=== PATIENT | female | born 1950 | race Caucasian/White ===

== ENCOUNTER 2019-05-16 13:41 | Outpatient (CLI) | payer MEDICARE, SELFPAY ==
--- NOTE | ~2019-05-16 | XR_ITS ---
EXAMINATION: XR chest 2V EXAM DATE: 05/16/2019 14:05 INDICATION: Right thoracic pain, right scapular pain. Cough. TECHNIQUE: Frontal and lateral projections of the chest obtained and reviewed. Comparison is made to prior examination from 09/24/2016. FINDINGS: Moderate chronic hyperinflation. The lungs are clear. There are no pleural effusions. Th e cardiomediastinal silhouette is within normal limits. There is no pneumothorax suspected. The bon es and soft tissues are unremarkable. IMPRESSION: 1. No acute cardiopulmonary findings. 2. Hyperinflation. Reviewed, dictated and finalized at location A. 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
--- NOTE | ~2019-05-16 | XR_ITS ---
EXAMINATION: XR scapula RT EXAM DATE: 05/16/2019 14:05 INDICATION: Right scapular pain. TECHNIQUE: Frontal and lateral projections of the right scapula. There is no prior study for compar dulce. FINDINGS: There is mild right acromioclavicular joint primary osteoarthritis. There are no acute scap jacquelyn fractures or dislocations identified. There is no subcutaneous gas. The soft tissue is unremark able. There are no radiopaque foreign bodies. Imaged portions of the right ribs are unremarkable. There are no osteoblastic or osteolytic lesions identified. IMPRESSION: Mild right acromioclavicular osteoarthritis. Reviewed, dictated and finalized at location A. 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
== END 2019-05-16 13:42 | disposition home or self-care (01) ==
LOC: CHSIMG 13:47
PROVIDERS: PCP Internal Medicine; Visit Provider Internal Medicine
DX: M54.6 Pain in thoracic spine (principal); M25.511 Pain in right shoulder
CPT/HCPCS: 71046; 73010

== ENCOUNTER 2020-01-19 10:27 | Outpatient (CLI) | payer MEDICARE, SELFPAY ==
[2020-01-19 10:41] LABS: Basophils Absolute Auto 0.04 K/mm3 (0.00-0.10); Basophils Percent Auto 0.8 % (0.0-1.0); Eosinophils Absolute Auto 0.16 K/mm3 (0.02-0.50); Eosinophils Percent Auto 3.3 % (1.0-6.0); Hematocrit 41.7 % (35.0-42.0); Hemoglobin 13.1 g/dL (11.7-13.8); Lymphocytes Percent Auto 28.9 % (18.0-42.0); Mean Corpuscular HGB Conc 31.4 g/dL (32.0-36.0); Mean Corpuscular Hemoglobin 30.5 pg (27.0-31.0); Mean Corpuscular Volume 97.2 fL (78.0-102.0); Mean Platelet Volume 9.7 fl (9.2-11.8); Monocytes Absolute Auto 0.49 K/mm3 (0.10-0.90); Monocytes Percent Auto 10.1 % (2.0-11.0); Neutrophils Absolute Auto 2.8 K/mm3 (1.7-7.2); Neutrophils Percent Auto 56.9 % (50.0-70.0); Platelet Count Result 244 K/mm3 (150-420); Red Blood Count 4.29 M/mm3 (4.20-5.40); Red Cell Distribution Width 12.9 % (11.6-14.4); White Blood Count 4.8 K/mm3 (4.8-10.8)
[2020-01-19 10:45] LABS: Add Urine Microscopic? YES; Appearance Urine Clear (Clear); Bilirubin Urine Negative (Negative); Blood Urine Negative (Negative); Color Urine Yellow (Yellow); Glucose Urine UA Negative (Negative); Ketones Urine Trace (Negative); Leukocyte Esterase Ur Negative LEU/UL (Negative); Nitrate Urine Negative (Negative); Protein Urine Negative (Negative); Specific Grav Ur 1.025 (1.010-1.020); pH Urine 6.5 (5.0-8.0)
[2020-01-19 10:50] LABS: Bacteria Urine 1+ /hpf; Mucus Urine Moderate /lpf; RBC Urine 0-2 /hpf (0-2); Squamous Epithelial Cell Urine Rare /hpf (Few); WBC Urine 0-3 /hpf (0-3)
[2020-01-19 11:23] LABS: Alanine Aminotransferase 28 U/L (14-59); Albumin Level 4.2 g/dL (3.4-5.0); Alkaline Phosphatase 81 U/L (46-116); Anion Gap 6 mmol/L (8-16); Aspartate Amino Transferase 15 U/L (15-37); Bilirubin,Total 0.7 mg/dL (0.00-1.00); Blood Urea Nitrogen 13 mg/dL (7-18); Calcium 9.6 mg/dL (8.5-10.1); Carbon Dioxide 31 mmol/L (21-32); Chloride 105 mmol/L (98-108); Cholesterol 132 mg/dL (0-200); Estimated Glomerular Filt Rate > 60; Glucose 94 mg/dL (70-99); HDL Direct 93 mg/dL (40-60); LDL Cholesterol Calculated 29 mg/dL (<130); Osmolality Calculated 294 mOsm/kg (285-295); Potassium 4.3 mmol/L (3.5-5.1); Sodium 142 mmol/L (136-145); Thyroid Stimulating Hormone 1.09 uIU/mL (0.36-3.74); Total Protein 6.8 g/dL (6.4-8.2); Triglycerides 48 mg/dL (0-150)
== END 2020-01-19 10:28 | disposition home or self-care (01) ==
PROVIDERS: PCP Internal Medicine
DX: E78.00 Pure hypercholesterolemia, unspecified (principal); G43.909 Migraine, unspecified, not intractable, without status migrainosus; R53.83 Other fatigue; I10 Essential (primary) hypertension; R42 Dizziness and giddiness; F41.9 Anxiety disorder, unspecified
CPT/HCPCS: 36415; 80053; 80061; 81001; 84443; 85025

== ENCOUNTER 2020-08-19 12:06 | Outpatient (CLI) | payer MEDICARE, SELFPAY ==
[2020-08-19 14:46] LABS: SARS-CoV-2 RNA PCR Negative (Negative)
== END 2020-08-19 12:07 | disposition home or self-care (01) ==
LOC: CHSLAB 12:09
PROVIDERS: PCP Internal Medicine; Visit Provider Internal Medicine
DX: Z20.822 Contact with and (suspected) exposure to COVID-19 (principal)
CPT/HCPCS: C9803; U0003; U0005

== ENCOUNTER 2020-09-11 18:59 | Outpatient (CLI) | payer MEDICARE, SELFPAY ==
--- NOTE | ~2020-09-11 | XR_ITS ---
XR chest 2V DATE: 09/11/2020 19:14 INDICATION: Shortness of breath, productive cough for 3 weeks. COPD. TECHNIQUE: 2 views COMPARISON: May 16, 2021 view chest FINDINGS: Bilateral hyperinflation consistent with history of COPD. No pulmonary infiltrate or consolidation. No pleural effusion or pulmonary vascular congestion or pne umothorax. Normal heart size. Aortic arch calcification. Diffuse osteopenia. IMPRESSION: COPD No active pulmonary disease Osteopenia Reviewed, dictated and finalized at location A.
== END 2020-09-11 19:00 | disposition home or self-care (01) ==
LOC: CHSIMG 19:01
PROVIDERS: PCP Internal Medicine; Visit Provider Internal Medicine
DX: R05 Cough (principal)
CPT/HCPCS: 71046

== ENCOUNTER 2021-03-06 12:52 | Outpatient (CLI) | payer MEDICARE, SELFPAY ==
--- NOTE | 2021-03-10 09:36 | WPDPFTINT ---
PFT Procedure Performed PFT Procedure Performed Spirometry with Pre/Post Bronchodilator Plethysmography (Lung Vol) Diffusing Cap (DLCO) Flow Vol Loop PFT Interpretation DOS: 03/06/2021 REQUESTING: Dr Owens REASON FOR TESTING: Cough PULMONARY FUNCTION TESTS Results are reliable and reproducible. Spirometry: Pre-bronchodilator FEV1 is 114% predicted, 2.46 L. FVC is 113%. The FEV1/FVC ratio is normal, 99%. There is no change after bronchodilator. Lung volumes: Total lung capacity is normal 100% predicted. Residual volume is 90% predicted. RV/TLC is 89%. No hyperinflation and no air trapping. Airway resistance is 100%, normal. Diffusion: DLCO 103% normal. Flow volume loop: Normal. IMPRESSION: This full pulmonary function test shows normal spirometry, normal lung volumes and normal diffusion capacity. No response to bronchodilator. This does not preclude use if clinically indicated. Marleni Clemente MD
== END 2021-03-06 12:53 | disposition home or self-care (01) ==
LOC: CHSCARD 12:54
PROVIDERS: PCP Internal Medicine; Visit Provider Internal Medicine Pulmonary Disease
DX: R05.9 Cough, unspecified (principal)
CPT/HCPCS: 94060; 94726; 94729

== ENCOUNTER 2021-07-04 13:06 | Outpatient (CLI) | payer MEDICARE, SELFPAY ==
[2021-07-04 14:29] LABS: Influenza A QL RT-PCR Negative (Negative); Influenza B QL RT-PCR Negative (Negative); SARS-CoV-2 RNA PCR Negative (Negative)
== END 2021-07-04 13:07 | disposition home or self-care (01) ==
LOC: CHSLAB 13:09
PROVIDERS: PCP Internal Medicine; Visit Provider Nurse Practitioner Family
DX: J06.9 Acute upper respiratory infection, unspecified (principal); R50.9 Fever, unspecified; R05.9 Cough, unspecified; Z20.822 Contact with and (suspected) exposure to COVID-19
CPT/HCPCS: 87502; C9803; U0003; U0005

== ENCOUNTER 2021-08-15 16:27 | Outpatient (CLI) | payer MEDICARE, SELFPAY ==
[2021-08-15 17:20] LABS: SARS-CoV-2 RNA PCR Positive (Negative)
[2021-08-15 17:32] LABS: Influenza A QL RT-PCR Negative (Negative); Influenza B QL RT-PCR Negative (Negative)
== END 2021-08-15 16:28 | disposition home or self-care (01) ==
LOC: CHSLAB 16:33
PROVIDERS: PCP Internal Medicine; Visit Provider Nurse Practitioner Family
DX: U07.1 COVID-19 (principal)
CPT/HCPCS: 87502; C9803; U0003; U0005

== ENCOUNTER 2021-08-19 12:25 | Outpatient (CLI) | payer MEDICARE, SELFPAY ==
--- NOTE | 2021-08-19 12:35 | PC.NURSE ---
Pt to room 211 amb. Up in chair. A&Ox3. Oriented to room and plan of care. Consent signed. Pt without questions or complaints. Call steen in reach. Reminded to call with needs.
[2021-08-19] MEDS: BEBTELOVIMAB 175 MG/2 ML VIAL IV PUSH (13:05)
[2021-08-19] MEDS: FAMOTIDINE 20 MG TABLET PO (13:05)
[2021-08-19] MEDS: diphenhydrAMINE HCl CAP 25 MG CAPSULE PO (13:05)
[2021-08-19] MEDS: ACETAMINOPHEN 325 MG TABLET 650 MG PO (13:05)
--- NOTE | 2021-08-19 13:41 | PC.NURSE ---
Pt tolerated medication well. Has no questions or complaints. Discharged to home amb per self.
== END 2021-08-19 12:26 | disposition home or self-care (01) ==
LOC: CHSTREATRM 12:28
PROVIDERS: PCP Internal Medicine; Visit Provider Internal Medicine
DX: U07.1 COVID-19 (principal); I10 Essential (primary) hypertension; J44.9 Chronic obstructive pulmonary disease, unspecified
CPT/HCPCS: A9270; M0222; Q0222

== ENCOUNTER 2021-12-17 13:48 | Outpatient (CLI) | payer MEDICARE, SELFPAY ==
[2021-12-17 14:03] LABS: Add Urine Microscopic? YES; Appearance Urine Clear (Clear); Basophils Absolute Auto 0.03 K/mm3 (0.00-0.10); Basophils Percent Auto 0.5 % (0.0-1.0); Bilirubin Urine 1+ (Negative); Blood Urine Negative (Negative); Color Urine Yellow (Yellow); Eosinophils Absolute Auto 0.19 K/mm3 (0.02-0.50); Eosinophils Percent Auto 3.4 % (1.0-6.0); Glucose Urine UA Negative (Negative); Hematocrit 37.9 % (35.0-42.0); Hemoglobin 12.3 g/dL (11.7-13.8); Immature Granulocyte Absolute 0.01 K/mm3 (0.00-0.00); Immature Granulocyte Percent A 0.2 % (0.0-0.0); Ketones Urine Negative (Negative); Leukocyte Esterase Ur Negative (Negative); Lymphocytes Absolute Auto 1.33 K/mm3 (1.10-4.50); Lymphocytes Percent Auto 24.1 % (18.0-42.0); Mean Corpuscular HGB Conc 32.5 g/dL (32.0-36.0); Mean Corpuscular Hemoglobin 30.4 pg (27.0-31.0); Mean Corpuscular Volume 93.8 fL (78.0-102.0); Monocytes Absolute Auto 0.33 K/mm3 (0.10-0.90); Neutrophils Absolute Auto 3.6 K/mm3 (1.7-7.2); Neutrophils Percent Auto 65.8 % (50.0-70.0); Nitrate Urine Negative (Negative); Platelet Count Result 196 K/mm3 (150-420); Protein Urine 2+ (Negative); Red Blood Count 4.04 M/mm3 (4.20-5.40); Red Cell Distribution Width 13.2 % (11.6-14.4); Specific Grav Ur >= 1.030 (1.010-1.020); White Blood Count 5.5 K/mm3 (4.8-10.8)
[2021-12-17 14:07] LABS: RBC Urine None seen /hpf (0-2); Squamous Epithelial Cell Urine Few /hpf (Few); WBC Urine None seen /hpf (0-3)
[2021-12-17 14:08] LABS: Bacteria Urine Trace /hpf; Mucus Urine Few /lpf
[2021-12-17 14:38] LABS: Alanine Aminotransferase 21 U/L (14-59); Albumin Level 3.9 g/dL (3.4-5.0); Alkaline Phosphatase 104 U/L (46-116); Anion Gap 6 mmol/L (8-16); Aspartate Amino Transferase 18 U/L (15-37); Bilirubin,Total 0.5 mg/dL (0.00-1.00); Blood Urea Nitrogen 12 mg/dL (7-18); Calcium 9.3 mg/dL (8.5-10.1); Carbon Dioxide 31 mmol/L (21-32); Chloride 102 mmol/L (98-108); Cholesterol 163 mg/dL (0-200); Estimated Glomerular Filt Rate > 60; Glucose 204 mg/dL (70-99); HDL Direct 80 mg/dL (40-60); LDL Cholesterol Calculated 67 mg/dL (<130); Osmolality Calculated 293 mOsm/kg (285-295); Sodium 139 mmol/L (136-145); Total Protein 6.5 g/dL (6.4-8.2); Triglycerides 80 mg/dL (0-150)
== END 2021-12-17 13:49 | disposition home or self-care (01) ==
LOC: CHSLAB 13:51
PROVIDERS: PCP Internal Medicine; Visit Provider Internal Medicine
DX: E78.5 Hyperlipidemia, unspecified (principal); I10 Essential (primary) hypertension
CPT/HCPCS: 36415; 80053; 80061; 81001; 84443; 85025

== ENCOUNTER 2022-07-31 13:12 | Outpatient (CLI) | payer MEDICARE, SELFPAY ==
--- NOTE | ~2022-07-31 | XR_ITS ---
AP and lateral views of the left hip Clinical history: Pain Findings: No acute fracture or dislocation is seen. Prior ORIF for now healed left femoral neck fract ure noted.. Soft tissues are unremarkable. Impression: No acute abnormality. Prior ORIF for now healed left femoral neck fracture. Reviewed, dictated and finalized at [facility]. Impression: No acute abnormality. Prior ORIF for now healed left femoral neck fracture.
--- NOTE | ~2022-07-31 | XR_ITS ---
AP and lateral views of the left femur Clinical History: Pain Findings: No acute fracture or dislocation is seen. Prior ORIF for now healed proximal femoral fractu re noted.. Visualized joint spaces are grossly preserved. Chondrocalcinosis of the menisci noted. Pro bable small loose body posterior to the knee, likely within the Young's cyst. Impression: No acute abnormality. Status post prior ORIF for now healed probable intertrochanteric fracture of the proximal femur.. Chondrocalcinosis of the menisci at the knee. Small loose body posteriorly at the knee, likely within a Young's cyst. Reviewed, dictated and finalized at location . Impression: No acute abnormality. Status post prior ORIF for now healed probable intertrochanteric fracture of th e proximal femur.. Chondrocalcinosis of the menisci at the knee. Small loose body posteriorly at the knee, likely within a Young's cyst.
--- NOTE | ~2022-07-31 | XR_ITS ---
EXAM: XR_CERV2-3V_CR DATE: 07/31/2022 13:53 HISTORY: CERVICAL LYMPHADENPATHY numbness down rt arm x 4 months . COMPARISON: None available. FINDINGS: Osteopenia. Craniocervical association and atlantoaxial joint are aligned. Mild degenerativ e change at the atlantoaxial joint. No prevertebral soft tissue swelling. 2 mm anterolisthesis at C4- 5. 2 mm retrolisthesis at C5-6. Vertebral body heights are maintained. Multilevel moderate disc space narrowing and marginal osteophytosis at C5-6 and C6-7. Multilevel moderate facet sclerosis and hyper trophy. IMPRESSION: Grade 1 anterolisthesis at C4-5. Grade 1 retrolisthesis at C5-6. Moderate degenerative di sc disease at C5-6 and C6-7. Multilevel moderate facet arthropathy. Reviewed, dictated and finalized at [facility]. IMPRESSION: Grade 1 anterolisthesis at C4-5. Grade 1 retrolisthesis at C5-6. Mo derate degenerative disc disease at C5-6 and C6-7. Multilevel moderate facet ar thropathy.
[2022-07-31 13:30] LABS: Basophils Absolute Auto 0.05 K/mm3 (0.00-0.10); Basophils Percent Auto 0.9 % (0.0-1.0); Eosinophils Absolute Auto 0.11 K/mm3 (0.02-0.50); Hematocrit 39.8 % (35.0-42.0); Hemoglobin 12.8 g/dL (11.7-13.8); Immature Granulocyte Absolute 0.01 K/mm3 (0.00-0.00); Immature Granulocyte Percent A 0.2 % (0.0-0.0); Lymphocytes Absolute Auto 1.48 K/mm3 (1.10-4.50); Lymphocytes Percent Auto 26.9 % (18.0-42.0); Mean Corpuscular HGB Conc 32.2 g/dL (32.0-36.0); Mean Corpuscular Volume 93.4 fL (78.0-102.0); Mean Platelet Volume 9.9 fl (9.2-11.8); Monocytes Absolute Auto 0.35 K/mm3 (0.10-0.90); Monocytes Percent Auto 6.4 % (2.0-11.0); Neutrophils Absolute Auto 3.5 K/mm3 (1.7-7.2); Neutrophils Percent Auto 63.6 % (50.0-70.0); Platelet Count Result 216 K/mm3 (150-420); Red Blood Count 4.26 M/mm3 (4.20-5.40); Red Cell Distribution Width 13.2 % (11.6-14.4); White Blood Count 5.5 K/mm3 (4.8-10.8)
[2022-07-31 13:56] LABS: Alanine Aminotransferase 26 U/L (14-59); Albumin Level 4.2 g/dL (3.4-5.0); Alkaline Phosphatase 103 U/L (46-116); Anion Gap 7 mmol/L (8-16); Aspartate Amino Transferase 15 U/L (15-37); Bilirubin,Total 0.7 mg/dL (0.00-1.00); Blood Urea Nitrogen 8 mg/dL (7-18); Calcium 9.6 mg/dL (8.5-10.1); Carbon Dioxide 32 mmol/L (21-32); Chloride 102 mmol/L (98-108); Estimated Glomerular Filt Rate > 60; Glucose 158 mg/dL (70-99); Osmolality Calculated 293 mOsm/kg (285-295); Phosphorus 3.9 mg/dL (2.6-4.7); Potassium 4.1 mmol/L (3.5-5.1); Sodium 141 mmol/L (136-145); Total Protein 7.1 g/dL (6.4-8.2)
[2022-07-31 13:57] LABS: CRP < 0.5 mg/dL (0.0-0.9)
[2022-08-04 10:28] LABS: Hemoglobin A1C 5.9 % (<5.7)
[2022-08-05 15:54] LABS: Vitamin D 1,25 (OH)2 Total 44 pg/mL (18-72); Vitamin D2 1,25 (OH)2 <8 pg/mL; Vitamin D3 1,25 (OH)2 44 pg/mL
[2022-08-05 19:32] LABS: Parathyroid Intact 62 pg/mL (14-64)
[2022-08-06 20:10] LABS: Vitamin D 25 Hydroxy 22 ng/mL (30-100)
== END 2022-07-31 13:13 | disposition home or self-care (01) ==
LOC: CHSLAB 13:15
PROVIDERS: PCP Internal Medicine; Visit Provider Internal Medicine
DX: R59.0 Localized enlarged lymph nodes (principal); M79.605 Pain in left leg; M54.12 Radiculopathy, cervical region; Z98.890 Other specified postprocedural states; M11.262 Other chondrocalcinosis, left knee; M43.12 Spondylolisthesis, cervical region; M50.322 Other cervical disc degeneration at C5-C6 level; R73.01 Impaired fasting glucose; M81.0 Age-related osteoporosis without current pathological fracture; E55.9 Vitamin D deficiency, unspecified
CPT/HCPCS: 36415; 72040; 73502; 73552; 80053; 82306; 82652; 83036; 83970; 84100; 85025; 86140

== ENCOUNTER 2022-09-14 13:24 | Outpatient (RCR) | payer MEDICARE, SELFPAY ==
--- NOTE | 2022-09-14 14:05 | PTOPEVAL1 ---
Assessment and note entered by JT File, PT Evaluation Information Assessment Status Evaluation Diagnosis cervical radiculopathy Onset 09/03/22 Subjective Information patient reports she has pain in the neck and paresthesias down the R arm since march. she reports she has had an MRI and reports she was reffered to either a surgeon or to PT. she reports she had symptoms down the whole R arm at first, but now it is mostly into the shoulder. she reports the arm will feel at times. she reports she has increased symptoms with cleaning/ caring from her cats. she reports she would like to get back to doing all her chores without so much rest. Reported Pain Level Pain Score 0: Self Report Assessment PT Clinical Summary mrs. winston is a 72 yo woman who presents to skilled PT with cervical pain and radicular symptoms in the R UE. she presents today with signs and symptoms of cervical DDD and lower cervical radiculopathy into the R UE. her symptoms are reducing, but she continues to have weakness, decreased rom, poor posture, and R UE paresthesias. she would benefit from continued skilled PT to address her objective/functional deficits and return to her prior level functional activity performance/quality of life. Plan of Care Interventions Electrical Stimulation,Hot Pack/Cold Pack,Manual Therapy,Neuro Re-education,Patient/Caregiver Educati,Therapeutic Activities,Therapeutic Exercise PT Services Indicated Yes Treatment Frequency and 3x weekly for 12 visits Duration These treatments will address the objective and functional deficits as defined above. The patient will be advanced safely and appropriately in order for the patient to progress towards his/her prior level of function. Additional exercises will be introduced and as well as a comprehensive home exercise program upon discharge, if needed, ?to ensure carryover of functional gains achieved in the clinic. This treatment plan has been reviewed and agreement upon by the patient.
--- NOTE | 2022-09-14 14:06 | OPREHPOC ---
Outpatient Therapy Plan of Care This is a Multidisciplinary Plan of Care that may contain components documented by all disciplines (PT, OT, and ST.) PT Problem 1 PT Problem #1 Knowledge Deficit PT Goal 1 Goal 1. independent and compliant with HEP to improve tolerance for continued skilled PT and exercises. Target Visit 6 PT Problem 2 PT Problem #2 Pain PT Goal 1 Goal 1. no pain and reduction of all radicular symptoms in the R UE Target Visit 12 PT Problem 3 PT Problem #3 Impaired Strength PT Goal 1 Goal 1. patient to display 4/5 or better bilateral MT/ LT/RH strength to improve scapular control and posture 2. patient to perform supine chin tuck with 1 pillow. 3. patient to be able to lift head with chin tuck from 1 pillow. Target Visit 12 PT Problem 4 PT Problem #4 Impaired Range of Motion PT Goal 1 Goal 1. patient to display 30 degrees bilateral cervical arom sidebending. Target Visit 12 PT Problem 5 PT Problem #5 Impaired Functional Mobil PT Goal 1 Goal 1. NDI to display 0% functional deficits 2. patient to perform all cleaning and caring for cats without limitations or pain.
--- NOTE | 2022-10-16 10:37 | PTOPDC ---
Assessment and note entered by JT File, PT Evaluation Information Assessment Status Evaluation Diagnosis cervical radiculopathy Onset 09/03/22 Subjective Information patient reports no radiation down the R arm any longer. she reports she has no pain in the neck, but does have pain in the R shoulder still. she reports the pain will come and go. she reports she thinks therapy has helped a little. Reported Pain Level Pain Score 5,0: Self Report Assessment PT Clinical Summary mrs. winston presents to skilled PT services for her 12th skilled therapy visit. as of this date, she reports elimination of all radicualr symptoms, and no further neck pain. she has met roughly 50% of goals for skilled PT. she will DC skilled PT services, and continue with HEP independent at home. Plan of Care PT Services Indicated Yes
--- NOTE | 2022-10-16 10:37 | OPREHPOC ---
Outpatient Therapy Plan of Care This is a Multidisciplinary Plan of Care that may contain components documented by all disciplines (PT, OT, and ST.) PT Problem 1 PT Problem #1 Knowledge Deficit PT Goal 1 Goal 1. independent and compliant with HEP to improve tolerance for continued skilled PT and exercises. Target Visit 6 Progress Met PT Problem 2 PT Problem #2 Pain PT Goal 1 Goal 1. no pain and reduction of all radicular symptoms in the R UE Target Visit 12 Progress Partially Met Comment no radicular symptoms, but patient has pain in the R shoulder. no neck pain. PT Problem 3 PT Problem #3 Impaired Strength PT Goal 1 Goal 1. patient to display 4/5 or better bilateral MT/ LT/RH strength to improve scapular control and posture 2. patient to perform supine chin tuck with 1 pillow. 3. patient to be able to lift head with chin tuck from 1 pillow. Target Visit 12 Progress Partially Met PT Problem 4 PT Problem #4 Impaired Range of Motion PT Goal 1 Goal 1. patient to display 30 degrees bilateral cervical arom sidebending. Target Visit 12 Progress Not Met PT Problem 5 PT Problem #5 Impaired Functional Mobil PT Goal 1 Goal 1. NDI to display 0% functional deficits 2. patient to perform all cleaning and caring for cats without limitations or pain. Progress Partially Met
== END 2022-10-16 20:00 | disposition home or self-care (01) ==
LOC: CHSPT 13:24
PROVIDERS: PCP Internal Medicine
DX: M54.12 Radiculopathy, cervical region (principal)
CPT/HCPCS: 97014; 97110; 97161; G0283

== ENCOUNTER 2022-09-19 17:52 | Emergency (ER) | payer MEDICARE, SELFPAY ==
[2022-09-19 17:57] VITALS: BP 149/74; PULSE 74; RESP 20; TEMP 36.8; O2SAT 97
--- NOTE | 2022-09-19 18:06 | ED.WOUNDLAC ---
HPI - Wound/Laceration General Stated Complaint: R little finger injury Time Seen by Provider: 09/19/22 17:57 Source: patient Mode of arrival: ambulatory Limitations: no limitations History of Present Illness HPI narrative: this is a 72-year-old female who presents after she was peeling potatoes with a mandolin and it caught her 5th right finger the distal end causing an avulsion injury otherwise no other injuries patient came in because she was having a hard time getting the wound to stop bleeding. Onset (ago): hour(s) Extremity Location: Right: hand ( avulsion injury to the 5th finger distal) Related Data Home Medications Medication Instructions Recorded Confirmed atorvastatin 20 mg tablet 20 mg PO DAILY 03/05/21 03/26/21 budesonide-formoterol HFA 160 2 puff inhalation Q12H 03/05/21 03/26/21 mcg-4.5 mcg/actuation aerosol inhaler (Symbicort) lorazepam 0.5 mg tablet 0.5 mg PO DAILY PRN 03/05/21 03/26/21 montelukast 10 mg tablet 10 mg PO DAILY 03/05/21 03/26/21 verapamil 240 mg 24 hr 240 mg PO DAILY 03/05/21 03/26/21 capsule,extended release Allergies Allergy/AdvReac Type Severity Reaction Status Date / Time Penicillins AdvReac Unknown Unknown Verified 03/26/21 13:13 Sulfa (Sulfonamide AdvReac Unknown Unknown Verified 03/26/21 13:13 Antibiotics) Review of Systems Review of Systems: All systems reviewed & are unremarkable except as noted in HPI and below PMFSH Past Medical History Medical History Patient denies medical problems Social History Social History Smoking status: Never smoker Exam Const: General: healthy appearing Nutritional Appearance: well nourished Orientation/consciousness: patient oriented x3 Eyes: Conjunctivae: conjunctivae normal Neck: Neck: normal visual inspection Chest: Chest palpation & inspection: normal inspection of the chest Resp: Effort & Inspection: normal respiratory effort Auscultation: clear to auscultation bilaterally Cardio: Rate: regular rate Rhythm: regular rhythm GI: GI Palp: Yes Soft to palpation Auscultation: normal bowel sounds Back/Spine/Pelvis: Back: no CVA tenderness Skin: Wounds: wounds noted Other: avulsion injury distal end of her right 5th finger Neuro: General: patient oriented x3 Extrem: General: normal to inspection Psych: Mental Status: mental status grossly normal Course Course Emergency Course: wound was explored patient is up-to-date with her tetanus and currently not bleeding. Vital Signs Vital signs: Vital Signs Temperature 36.8 C 09/19/22 17:57 Pulse Rate 74 09/19/22 17:57 Respiratory Rate 20 09/19/22 17:57 Blood Pressure 149/74 H 09/19/22 17:57 Pulse Oximetry 97 09/19/22 17:57 Oxygen Delivery Room Air 09/19/22 17:57 Temperature 36.8 C 09/19/22 17:57 Pulse Rate 74 09/19/22 17:57 Respiratory Rate 20 09/19/22 17:57 Blood Pressure 149/74 H 09/19/22 17:57 Pulse Oximetry 97 09/19/22 17:57 Oxygen Delivery Room Air 09/19/22 17:57 Critical Care Time Critical Care Time Critical Care Time: No Discharge Plan Discharge Clinical Impression: Avulsion of skin of finger Qualifiers: Encounter type: initial encounter Qualified Code(s): S61.209A - Unspecified open wound of unspecified finger without damage to nail, initial encounter Patient Disposition: Home, Self-Care Condition: Stable Instructions: Antibiotic Form Additional Instructions: advised to follow-up with primary care physician if symptoms persist or worsen. Prescriptions: No Action lorazepam 0.5 mg tablet 0.5 mg PO DAILY PRN atorvastatin 20 mg tablet 20 mg PO DAILY montelukast 10 mg tablet 10 mg PO DAILY verapamil 240 mg capsule,ext rel. pellets 24 hr 240 mg PO DAILY budesonide-formoterol [Symbicort] 160-4.5 mcg/actuation HFA aerosol inhaler
== END 2022-09-19 18:30 | disposition home or self-care (01) ==
PROVIDERS: Emergency Provider Emergency Medicine; PCP Internal Medicine
DX: S61.216A Laceration without foreign body of right little finger without damage to nail, initial encounter (principal); W26.8XXA Contact with other sharp object(s), not elsewhere classified, initial encounter
CPT/HCPCS: 99282

== ENCOUNTER 2022-12-09 15:39 | Outpatient (CLI) | payer MEDICARE, SELFPAY ==
--- NOTE | ~2022-12-09 | XR_ITS ---
XR chest 2V 12/09/2022 15:56 Indication: Cough and fatigue. COPD. Procedure: 2 view chest Comparison: Comparison to multiple prior studies sequentially, with oldest reviewed study dated 11/15. Findings: Heart size is normal. No focal air space disease, pulmonary edema, pleural effusion or susp ected pneumothorax. Calcified granuloma left lung base. There is a healed left humeral neck fracture. Impression: 1: No acute cardiopulmonary disease. Reviewed, dictated and finalized at location B. Impression: 1: No acute cardiopulmonary disease.
== END 2022-12-09 15:40 | disposition home or self-care (01) ==
LOC: CHSIMG 15:41
PROVIDERS: PCP Internal Medicine; Visit Provider Internal Medicine
DX: R05.9 Cough, unspecified (principal); R53.83 Other fatigue
CPT/HCPCS: 71046

== ENCOUNTER 2023-09-21 09:57 | Outpatient (CLI) | payer MEDICARE, SELFPAY ==
[2023-09-21 10:49] LABS: Alanine Aminotransferase 20 U/L (14-59); Albumin Level 3.9 g/dL (3.4-5.0); Alkaline Phosphatase 95 U/L (46-116); Anion Gap 6 mmol/L (4-12); Aspartate Amino Transferase 15 U/L (15-37); Bilirubin,Total 0.9 mg/dL (0.00-1.00); Blood Urea Nitrogen 15 mg/dL (7-18); Calcium 9.3 mg/dL (8.5-10.1); Carbon Dioxide 31 mmol/L (21-32); Chloride 102 mmol/L (98-108); Cholesterol 164 mg/dL (0-200); Estimated Glomerular Filt Rate > 60; Glucose 99 mg/dL (70-99); HDL Direct 77 mg/dL (40-60); LDL Cholesterol Calculated 75 mg/dL (<130); Osmolality Calculated 288 mOsm/kg (285-295); Potassium 4.3 mmol/L (3.5-5.1); Sodium 139 mmol/L (136-145); Total Protein 6.6 g/dL (6.4-8.2); Triglycerides 62 mg/dL (0-150)
== END 2023-09-21 09:58 | disposition home or self-care (01) ==
LOC: CHSLAB 10:02
PROVIDERS: PCP Internal Medicine
DX: E78.5 Hyperlipidemia, unspecified (principal); I65.23 Occlusion and stenosis of bilateral carotid arteries
CPT/HCPCS: 36415; 80053; 80061

== ENCOUNTER 2023-10-06 15:25 | Outpatient (RCR) | payer MEDICARE, SELFPAY ==
--- NOTE | 2023-10-06 16:29 | OPREHPOC ---
Outpatient Therapy Plan of Care This is a Multidisciplinary Plan of Care that may contain components documented by all disciplines (PT, OT, and ST.) PT Problem 1 PT Problem #1 Knowledge Deficit PT Goal 1 Goal 1. independent and compliant with HEP Target Visit 4 PT Problem 2 PT Problem #2 Pain PT Goal 1 Goal 1. pain to report no more than 3/10 pain at worst in the L LE. Target Visit 9 PT Problem 3 PT Problem #3 Impaired Strength PT Goal 1 Goal 1. improve bilateral hip strength to 4+/5 or better overall 2. 5/5 L strength 3. 4/5 or better core strength Target Visit 9 PT Problem 4 PT Problem #4 Impaired Functional Mobil PT Goal 1 Goal 1. oswestry to display less than 20% functional deficits 2. patient to transfer from sit to stand without pain 3. patient to complete 10 minute walk without symptoms in the L LE 4. no pain with palpation of the L lateral leg Target Visit 9
--- NOTE | 2023-10-06 16:29 | PTOPEVAL1 ---
Assessment and note entered by JT File, PT Evaluation Information Assessment Status Evaluation Diagnosis L L5 radiculopathy ICD-10 Condition Codes (PT) M54.16 Onset 10/05/23 Subjective Information patient reports she is having pain in the L anterior thigh. she reports it hurts so bad in the muscle. she reports she has had an xray, and reports she was told she has arthritis in the L LE . she is unsure if she had an xray of the lower back. she reports the pain in the L LE began about 9 months or so ago. she reports at times the leg will feel like it is about to give out. she reports she has increased pain and symptoms in the L LE when getting up from a chair real quick to try and take off. she reports she uses a cane when her pain is present. she reports she has no numbness, burning, or tingling. she reports the pain is along the front and side of the L LE from the hip down to the knee. she reports she has no groin pain. Reported Pain Level Pain Score 2: Self Report Assessment PT Clinical Summary mrs. winston is a 73 yo woman who presents to skilled PT services for evaluation and treatment of L LE pain. her symptoms are indicative of a lumbar radiculopathy. she is tender to palpation along the R glutes and R lateral thigh. she displays limited PA glides of the lumbar spine, and lack of lumbar active extension and side bending. her L hip strength is weakened, as well as her L hamstrings strength. continued skilled PT is indicated to improve her objective/functional deficits and progress towards a return to her prior level functional activity performance and quality of life. Plan of Care Interventions Electrical Stimulation,Hot Pack/Cold Pack,Manual Therapy,Mechanical Traction,Neuro Re-education, Patient/Caregiver Educati,Therapeutic Activities, Therapeutic Exercise PT Services Indicated Yes Treatment Frequency and 3x weekly for 9 visits Duration These treatments will address the objective and functional deficits as defined above. The patient will be advanced safely and appropriately in order for the patient to progress towards his/her prior level of function. Additional exercises will be introduced and as well as a comprehensive home exercise program upon discharge, if needed, ?to ensure carryover of functional gains achieved in the clinic. This treatment plan has been reviewed and agreement upon by the patient.
--- NOTE | 2023-10-27 16:14 | OPREHPOC ---
Outpatient Therapy Plan of Care This is a Multidisciplinary Plan of Care that may contain components documented by all disciplines (PT, OT, and ST.) PT Problem 1 PT Problem #1 Knowledge Deficit PT Goal 1 Goal 1. independent and compliant with HEP Target Visit 4 Progress Partially Met PT Problem 2 PT Problem #2 Pain PT Goal 1 Goal 1. pain to report no more than 3/10 pain at worst in the L LE. Target Visit 13 Progress Not Met PT Problem 3 PT Problem #3 Impaired Strength PT Goal 1 Goal 1. improve bilateral hip strength to 4+/5 or better overall. met 2. 5/5 L strength. met 3. 4/5 or better core strength. not met Target Visit 13 Progress Partially Met PT Problem 4 PT Problem #4 Impaired Functional Mobil PT Goal 1 Goal 1. oswestry to display less than 20% functional deficits. not met 2. patient to transfer from sit to stand without pain. not met 3. patient to complete 10 minute walk without symptoms in the L LE. not met 4. no pain with palpation of the L lateral leg. not met Target Visit 13
--- NOTE | 2023-10-27 16:14 | PTOPREEVAL ---
Assessment and note entered by JT File, PT Evaluation Information Assessment Status Re-evaluation Diagnosis L L5 radiculopathy ICD-10 Condition Codes (PT) M54.16 Onset 10/05/23 Subjective Information patient reports she feels she is better than at her initial evaluation. however, she reports at times she still has intense pain down the side of the L LE. she reports it is worst when starting walking, especially after sitting for some time. she reports she has not been the best with compliance of her HEP at home, but reports she will try to do it more consistently. Reported Pain Level Pain Score 3: Self Report Assessment PT Clinical Summary mrs. winston presents to skilled PT for her 9th skilled PT visit. she presents with improved hip strength, improved core strength, and decreased pain at worst. however, she continues to have pain down the L LE, and pain with getting up from chair to walk. she has made progress towards goals , but would benefit from continued skilled PT to further improve her objective/functional deficits and achieve remaining unmet goals for skilled PT. patient will be decreased in frequency of skilled PT to prepare for transition to independent HEP. however, she will need to begin to be more compliant her HEP during her continued skilled PT. Plan of Care Interventions Electrical Stimulation,Hot Pack/Cold Pack,Manual Therapy,Mechanical Traction,Neuro Re-education, Patient/Caregiver Educati,Therapeutic Activities, Therapeutic Exercise PT Services Indicated Yes Treatment Frequency and continue skilled PT 1x weekly for 4 more visits Duration These treatments will address the objective and functional deficits as defined above. The patient will be advanced safely and appropriately in order for the patient to progress towards his/her prior level of function. Additional exercises will be introduced and as well as a comprehensive home exercise program upon discharge, if needed, ?to ensure carryover of functional gains achieved in the clinic. This treatment plan has been reviewed and agreement upon by the patient.
== END 2024-01-04 23:59 | disposition home or self-care (01) ==
LOC: CHSPT 15:25
PROVIDERS: PCP Internal Medicine; Visit Provider Internal Medicine
DX: M54.17 Radiculopathy, lumbosacral region (principal)
CPT/HCPCS: 97014; 97110; 97112; 97140; 97161; G0283

== ENCOUNTER 2024-06-09 07:56 | Outpatient (CLI) | payer MEDICARE, SELFPAY ==
--- NOTE | ~2024-06-09 | MM_ITS ---
EXAMINATION: MM screening antonio BI w alondra HISTORY: Screening mammogram TECHNIQUE: Craniocaudal and mediolateral oblique 3-D tomosynthesis images were obtained and synthetic 2-D images were generated. CAD analysis was submitted and interpreted. COMPARISON: No prior mammogram is available for comparison at this institution. BREAST PARENCHYMAL COMPOSITION:Dense: The breasts are heterogeneously dense, which may obscure small masses. FINDINGS: No suspicious mass, calcification, or architectural distortion are identified in either najma ast to suggest malignancy. There has been no suspicious interval change. IMPRESSION: No mammographic evidence of malignancy. Recommend routine screening mammography in one year. BI-RADS Category 1: Negative Reviewed, dictated and finalized at location .
--- NOTE | ~2024-06-09 | DEXA_ITS ---
Bone Density Report Name: CHEVY ALFRED Age: 74 Sex: Female Ethnicity: White Date of : 1950 Indication: postmenopausal; screening for osteoporosis; parental hip fracture; height loss; prior fracture; asthma or emphysema; Referring Provider: Mariano Owens Study: Bone densitometry was performed. Exam Date: June 09, 2024 Accession number: [id number] Bone Density: Region BMD T-score Z-score Classification AP Spine(L1-L4) 0.876 -1.6 0.9 Osteopenia Femoral Neck (Right) 0.544 -2.8 -0.6 Osteoporosis Total Hip (Right) 0.717 -1.8 0.0 Osteopenia World Health Organization criteria for BMD impression classify patients as: Normal (T-score at or above -1.0), Osteopenia (T-score between -1.0 and -2.5), or Osteoporosis (T-score at or below -2.5). 10-year Fracture Risk: FRAX not reported because: Some T-score for Spine Total or Hip Total or Femoral Neck at or below -2.5 Prior hip or vertebral fracture Clinical Information Provided by Patient: Have had a previous hip or vertebral fracture Has had a low trauma fracture Parent has had a hip fracture Has the following medical conditions: Asthma or Emphysema Patient maximum height was 66 Menopause Age: 53 No regular weight bearing exercise Drinks caffeinated beverages Onset of menses at age 9 Number of children 3 Impression: The patient has established osteoporosis, based on the Right Femoral Neck T-score and the existence of a prior fracture. The patient has risk factors, including: parental hip fracture, previous fracture. Discussion: HIGH RISK OF FRACTURE. BONE DENSITY IS UNDESIRABLY LOW AT ONE OR MORE SKELETAL SITES, CONSISTENT WITH POSTMENOPAUSAL OSTEOPOROSIS. This patient's lowest T-score, in a patient who has previously fractured, meets the World Health Organization's (WHO) criteria for severe osteoporosis. In untreated patients, the risk of osteoporotic fracture increases approximately two-fold for each 1.0 SD decrease in T-score. Low bone density is not the only risk factor for fracture; also consider factors such as patient's age, frailty or poor health, risk of falling, risk of injury, previous osteoporotic fracture, family history of osteoporosis, cigarette smoking, low body weight, etc. Not everyone with low bone mineral density has osteoporosis; osteomalacia and other metabolic bone disorders should also be considered. Patients who have osteoporosis should be evaluated for specific diseases and conditions (secondary causes) that may cause or contribute to bone loss. The [place] Association of Clinical Endocrinologists (AACE) and National Osteoporosis Foundation (NOF) recommend pharmacologic intervention for all postmenopausal women with a previous hip or vertebral fracture and a T-score in this range. The patient should follow a healthful lifestyle (good nutrition with adequate calcium and vitamin D, and appropriate weight-bearing exercise). Follow-Up: Consider a repeat BMD and Vertebral Fracture Assessment (VFA) exam in 2 years or sooner if medically necessary, to reassess this patient's status. Reported by: ARNULFO on 06/09/2024 8:28:00 AM. Reviewed, dictated and finalized at location A.
--- OUTSIDE RECORDS SUMMARY | 2024-06-09 08:07 | XMS_ITS | Data Portability ---
Author Organization [facility] [place] Address [address] [place] [address] Care Team Providers Care Forensic Locksmith Name Role Phone OSCAR SARKAR Primary Care Provider Assessment Encounter Date Assessment Date Assessment LastModified by Organization Details LastModified Time 03/31/2021 03/31/2021 healthy female exam/menopaus e patient declines std testing pap- none further mammogram ordered and encouraged colonoscopy- pt declines, but agrees to cologuard, ordered dexa ordered and encouraged Encouraged weight bearing exercise and 1500mg daily of Calcium with Vitamin D estrace refilled FU 1 year or prn [email or web address] Not available 04/02/2021 09:15:32 Plan of Treatment Reminders Order Date Submit Date Provider Last Modified By Organization Details Last Modified Time Details Appointments None recorded. Lab None recorded. Referral None recorded. Procedures None recorded. Surgeries None recorded. Imaging None recorded. Medication Orders Estrace 0.01% (0.1 mg/gram) vaginal cream 022 [facility], [address] [place] [address], [address], 14:53:45 Patient TargetsNo targets recorded. Patient InstructionsNo instructions recorded. Reason for Referral None Reported. Results Created Date Observation Date Name Description Value Unit Range Abnormal Flag Note LastModifiedBy Organization Detail LastModifiedTime 01/14/2001/13/2022 DEXA No observ ation record ed. [facility] (Radiology) [address], [place], [address], 01/13/2022 18:49:44 01/15/20 22 01/13/2022 MAMMO , scree jose, bilat eral No observ ation record ed. [address], [place], [address], 01/14/2022 17:18:45 Result Notes None recorded. Problems Name Problem SNOMED Code Status Onset Date Resolution Date Notes Provider Name and Address Organization Details Recorded Time Sexual function painful Completed 201803/31/2021 Dyspareu arnel;Salvador rded Elsewher e: No Locat ion: [facility] S ource: EHR Gluer And Wedger minesh: N Practi ce ID: 0001 Jose A lable Time: 11:00:00 AM María Romero MD [address], [place], [address], [facility] 14:42:32 Atrophic vaginiti s 00628163 Active 2018 María Romero MD [address], [place], [address], [facility] 14:42:28 Problem Notes None recorded. Procedures Surgical History Date Name Laterality Status Provider Name and Address Organization Details Recorded Time Jaw arthroscopy /surgery completed Isha Cruz [facility] 03/31/2021 09:33:16 Imaging Results Imaging Date Name Status LastModified by Organiz ation Details LastModified Time 01/13/2022 DEXA completed [address] (Radiology) [address], [place], [address], 01/13/2022 18:49:44 01/13/2022 MAMMO, screening, bilateral completed [address], [place], [address], 01/14/2022 17:18:45 Procedure Notes None recorded. Medical Equipment None Reported. Allergies Allergen ID Allergen Name Allergen Category Reaction Reaction Severity Criticality Documentation Date Start Date Code Code System Note Provider Name and Address Organization Details Recorded Time 61398 Product containin g penicilli n (product) medicatio n Not available Not available Not available 03/15/2020 03389 8001 SNOMED React ion: Itchi ng;jarrod craig; Comme nt: [facility]; Not Available [facility] 0 14:14:47 59022 Substance with sulfonami de structure and antibacte rial mechanism of action (substanc e) medicatio n Not available Not available Not available 03/15/2020 37826 8003 SNOMED React ion: Itchi ng;jarrod craig; Comme nt: Locat [facility]: [facility]; Not Available [facility] 0 14:14:47 Medications Name Sig Start Date Stop Date Status Note LastModified by Organization Details LastModified Time atorvasta tin 80 mg tablet take 1 tablet by oral route every day 03/31 completed Prescrib ed Elsewher e: Yes Loca tion: [facility] odify By: [email or web address] Encount er DateTime : 04/01/19 19 11:00:00 AM Not Available Not Available Not Available prednison e 10 mg tablet 03/31 completed Not Available Not Available Not Available cefuroxim e axetil 250 mg tablet active Not Available Not Available Not Available atorvasta tin 20 mg tablet active Not Available Not Available Not Available clindamyc in HCl 300 mg capsule TAKE 1 CAPSULE BY MOUTH TWICE DAILY FOR 7 DAYS active Not Available Not Available No t Available azithromy shanti 250 mg tablet active Not Available Not Available No t Available benzonata te 200 mg capsule 03/31 completed Not Available Not Available Not Available gabapenti n 400 mg capsule take 1 capsule by oral route 3 times every day 03/31 completed Prescrib ed Elsewher e: Yes Loca tion: [facility] odify By: [email or web address] Encount er DateTime : 04/01/19 19 11:00:00 AM Not Available Not Available Not Available metronida zole 500 mg tablet active Not Available Not Available No t Available hydrocodo ne 10 mg-acetam inophen 325 mg tablet active Not Available Not Available Not Available lorazepam 0.5 mg tablet active Not Available Not Available Not Available lorazepam 2 mg tablet take 1 tablet by oral route 3 times every day as needed active Prescrib ed Elsewher e: Yes Loca tion: [facility] odify By: [email or web address] Encount er DateTime : 04/01/19 11:00:00 AM Not Available Not Available Not Available doxycycli ne monohydra te 100 mg capsule active Not Available Not Available Not Available cephalexi n 500 mg capsule 03/31 completed Not Available Not Available Not Available verapamil ER (SR) 240 mg tablet,ex tended release active Not Available Not Available Not Available monteluka st 10 mg tablet active Not Available Not Available Not Available estradiol 0.01% (0.1 mg/gram) vaginal cream insert (1G) by vaginal route 3 times every week active Not Available Not Available No t Available verapamil 80 mg tablet take 1 tablet by oral route 3 times every day active Prescrib ed Elsewher e: Yes Loca tion: [facility] odify By: Encount er DateTime : 04/01/19 11:00:00 AM Not Available Not Available Not Available methylpre dnisolone 4 mg tablets in a dose pack active Not Available Not Available Not Available Symbicort 160 mcg-4.5 mcg/actua tion HFA aerosol inhaler 03/31 completed Not Available Not Available Not Available Lagevrio 200 mg capsule (EUA) TAKE 4 CAPSULES (800 MG) BY ORAL ROUTE EVERY 12 HOURS FOR 5 DAYS active Not Available Not Available No t Available Vitals Date Recorded Body height Body mass index (BMI) Body weight Systolic blood pressure Diastolic blood pressure Provider Name and Address Organization Details Last Updated DateTime 03/31/2021 167.64 cm 20.8 kg/m2 43593.42 g 145 mm[Hg] 84 mm[Hg] Isha Cruz [facility] 14:32:30 Date Recorded Body weight Provider Name an d Address Organization Details Last Updated DateTime 04/07/2022 52496.53 g Brittny Valerio [facility] 04/07/2022 12:40:25 Date Recorded Systolic blood pressure Diastolic blood pressure Provider Name and Address Organization Details Last Updated DateTime 04/07/2022 122 mm[Hg] 74 mm[Hg] Letty Stout, [facility]- [address], [place], [address], [facility] 04/07/2022 12:50:54 Social History Question Answer Notes LastModified by Organizat ion Details LastModified Time Tobacco Smoking Status Never Smoker Brittny Rodneyse torres, [facility] 04/07/2022 12:41:19 What Is Your Level Of Alcohol Consumption? None Information not available 04/07/2022 Are You Blind Or Do You Have Difficulty Seeing? No Information n ot available 04/07/2022 What Is Your Level Of Caffeine Consumption? Moderate Information not available 04/07/2022 How Much Tobacco Do You Chew? None Information not available 04/07/2022 In The 14 Days Before Symptom Onset, Have You Had Close Contact With A Laboratory-confirm ed COVID-19 While That Case Was Ill? No Information n ot available 04/07/2022 In The 14 Days Before Symptom Onset, Have You Had Close Contact With A Person Who Is Under Investigation For COVID-19 While That Person Was Ill? No Information not available 04/07/2022 Have You Been To An Area Known To Be High Risk For COVID-19? No Information not available 04/07/2022 Are You Deaf Or Do You Have Serious Difficulty Hearing? No Information not available 04/07/2022 What Type Of Diet Are You Following? REGULAR Information n ot available 04/07/2022 What Is The Highest Grade Or Level Of School You Have Completed Or The Highest Degree You Have Received? [id number] Information not available 04/07/2022 What Is Your Occupation? Retired Information not available 04/07/2022 Are There Any Guns Present In Your Home? No Information not available 04/07/2022 Do You Use Your Seat Belt Or Car Seat Routinely? Yes Information not available 04/07/2022 Do You Have Smoke And Carbon Monoxide Detectors In Your Home? Yes Information not available 04/07/2022 How Much Tobacco Do You Smoke? No Information not available 04/07/2022 Do You Feel Stressed (tense, Restless, Nervous, Or Anxious, Or Unable To Sleep At Night)? [id number] Information not available 04/07/2022 Do You Use Any Illicit Or Recreational Drugs? No Information not available 04/07/2022 Do You Use Sunscreen Routinely? Yes Information not available 04/07/2022 Have You Used IV Drugs? No Information not available 04/07/2022 Sex: Unknown Functional Status Question Answer Note LastModified by Organizat ion Details LastModified Time Do you have difficulty walking or climbing stairs? No Information not available 04/07/2022 Are you able to walk? YESWOREST Information not available 04/07/2022 Are you able to care for yourself? Yes Information not available 04/07/2022 Do you have difficulty dressing or bathing? No Information not available 04/07/2022 What is your exercise level? Occasional Information not available 04/07/2022 Mental Status None recorded. Family History Relationship Description Onset Age of this Age Resolved Age Notes LastModified by Organization Details LastModified Time Mother Malignant neoplasm of uterus Not available 2022 12:41:03 Paternal Grandmother Heart disease Not available 2022 12:41:09 Notes:Mother: Cancer, uterin e Paternal grandmother: Heart disease Medical History Condition Response Allergies (Food, seasonal, environmental ) N Other N Breast Cancer N Drug/Latex Allergies/Reactions N Blood Transfusion N Dermatologic Disorders N Lung Disease N Defects or Inherited Disease N Breast Problem N Gestational Diabetes N Hematologic disorders N Anesthesia Complications N History of STI N Deep Vein Thrombosis N Polycystic ovary syndrome N Anxiety Disorder N Autoimmune disease N Arthritis N Infertility N Polyps N Acid Reflux (GERD) N History of abnormal pap N Cancer N Stroke N Varicosities N Neurologic/Epilepsy N Endometriosis N High Cholesterol Y Headaches N Fibromyalgia N Kidney Disease N Heart Problems N Kidney or Bladder Problems N Thyroid Problems N GI Problems N Eating Disorder N Anemia N Art (IVF or FET) N Psychiatric Illness N Ovarian Cancer N Diabetes N Pulmonary (TB, Asthma) N Hepatitis/Liver Disease N No Past Medical History N Eczema N Urinary Tract Infection N Abuse/Domestic Violence N Asthma N Trauma/Violence N Depression/ depression N Heart Disease N Pre-Eclampsia N Hypertension Y Osteoporosis N Thrombophilias N Gynecological History Statement/Question Response N STIs/STDs N Was last menstrual period normal Y HPV Vaccine N Current Control Method None Age at First Child 17 If Post Menopausal, Age at Menopause 53 Date of control 1950 Sexually Active? N Age of first menstrual cycle 9 Date of Last Pap Smear Sexual Problems? Y LMP Unknown N Obstetrics History GPAL:G 3 P 3 0 0 3 Type Value Full Term 3 Living 3 Total 3 Past Encounters Encounter ID Performer Location Encounter Start Date Encounter Closed Date Diagnosis/Indication Diagnosis SNOMED-CT Code Diagnosis ICD10 Code Diagnosis Note [id number] María Romero MD [place] [address] [address] 03/31/2021 14:17:25 04/01/2021 15:35:30 Atrophic vaginitis 64420458 N95.2 Gynecologi c examination 39513528 Z01.419 [id number] Letty Stout [facility] [address] [address] 04/07/2022 12:25:23 04/07/2022 13:05:48 Sebaceous cyst of skin 533506187 L72.3 Today we talked about what a Sebaceous cyst is.It is non-inflam ed and no infection appears to be present.Si nce it is only cosmetical ly notable she would like to monitor for now.If any changes in this area she will return to office for additional evaluation . Understand ing verbalized & agreeable to plan of care. Time spent in visit is a total of 15 mins with at least 50% of visit consisting of counseling and review of plan of care. Health Concerns Section Related Observation LastModified by Organization Detai ls LastModified Time None Recorded Concern Status LastModified by Organization Details LastModified Time None Recorded Advance Directives Directive None Recorded Payers Encounter Date Sequence Insurance Name Policy Number Policy Maddox Covered Member ID Maddox Member ID Guarantor Name 03/31/2021 1 [place] Carolee Lopez [id number] Carolee Lopez 04/07/2022 2 [employer] (MEDICARE SUPPLEMENT) Carolee Lopez [id number] Carolee Lopez 04/07/2022 1 [place] Carolee Lopez [id number] Carolee Lopez Notes Date Note Type Note Provider Name and Address Organization Details Recorded Time 03/31/2021 text/html Patient is a 71yo who presents for an annual exam. Has not been using her estrace, but wants to restart. last pap-2017, all normal mammo-2020 colonoscopy-11 years, declines dexa-none menopause-y sexually active-n seatbelts-y exercise-y depression-denie s domestic violence-denies tobacco-n concerns- María Romero MD [address], [place], [address], [facility] 04/02/2021 09:15:48 04/07/2022 text/html Here today for vulvar bump noticed while looking to see if any skin irritation from using a new pantyliner; noticed a small white bump on inner portion of left labia majora. Neg pain of abd/pelvis/flank Neg urinary sx'sNeg GI sx'sNeg N/V/F/C/DNeg Vag d/c, odor, irritation, itchingNot regularly SA-partner of 20+yrs has health issues currently. CO[facility]- [address], [place], [address], [facility] 04/07/2022 13:01:20 OBGyn Episode Ob Episode Information Episode Created Date Number of Fetuses Patient Bloodtype Patient rh Status Prepregnancy Weight lbs Domestic Partner Domestic Partner Phone Father Name Book Salesman Status 03/31/19 22 1 CLOSED Fetus Data First Name Last Name Admitted to NICU Weight (g) Sex Living Outcome Pediatric Complications Fetus ID Race Codes Race Delivery Type 4025.62 [phone] [id number] Vaginal Delivery Deny Calculation Initial Deny Date Initial Exam Date Initial Exam Provider Initial Ultrasound Date Last Menstrual Period Date Ultra Sound Weeks Gestation 0 Eighteen To Twenty Week Deny Update Ultra Sound Date Fundal Height At Umbil Quickening Date Ultra Sound Latest Weeks Gestation Final Deny Confirmed By Final Deny Confirmed Date Final Deny Date Ultra Sound Latest Days Gestation 0 0 Menstrual History Last Menstrual Date Menses Monthly On Bcp Conception Prior Menses Frequency Hcg Plus Date Menarche Onset Age Delivery Information Delivery Date Delivery Type Labor Anesthesia Weeks Gestation Incision Type Labor Labor Length Hrs Delivered By Post Complications Tubal Sterilization Discharge Date Comments 8 Discharge Information Feeding Method Contraceptive Method Maternal HG B and HCT Levels Ob Episode Information Episode Created Date Number of Fetuses Patient Bloodtype Patient rh Status Prepregnancy Weight lbs Domestic Partner Domestic Partner Phone Father Name Book Salesman Status 03/31/19 22 1 CLOSED Fetus Data First Name Last Name Admitted to NICU Weight (g) Sex Living Outcome Pediatric Complications Fetus ID Race Codes Race Delivery Type 3316.66 [id number] Vaginal Delivery Deny Calculation Initial Deny Date Initial Exam Date Initial Exam Provider Initial Ultrasound Date Last Menstrual Period Date Ultra Sound Weeks Gestation 0 Eighteen To Twenty Week Deny Update Ultra Sound Date Fundal Height At Umbil Quickening Date Ultra Sound Latest Weeks Gestation Final Deny Confirmed By Final Deny Confirmed Date Final Deny Date Ultra Sound Latest Days Gestation 0 0 Menstrual History Last Menstrual Date Menses Monthly On Bcp Conception Prior Menses Frequency Hcg Plus Date Menarche Onset Age Delivery Information Delivery Date Delivery Type Labor Anesthesia Weeks Gestation Incision Type Labor Labor Length Hrs Delivered By Post Complications Tubal Sterilization Discharge Date Comments 8 Discharge Information Feeding Method Contraceptive Method Maternal HG B and HCT Levels Ob Episode Information Episode Created Date Number of Fetuses Patient Bloodtype Patient rh Status Prepregnancy Weight lbs Domestic Partner Domestic Partner Phone Father Name Book Salesman Status 03/31/19 22 1 CLOSED Fetus Data First Name Last Name Admitted to NICU Weight (g) Sex Living Outcome Pediatric Complications Fetus ID Race Codes Race Delivery Type 2919.77 [id number] Vaginal Delivery Deyn Calculation Initial Deny Date Initial Exam Date Initial Exam Provider Initial Ultrasound Date Last Menstrual Period Date Ultra Sound Weeks Gestation 0 Eighteen To Twenty Week Deny Update Ultra Sound Date Fundal Height At Umbil Quickening Date Ultra Sound Latest Weeks Gestation Final Deny Confirmed By Final Deny Confirmed Date Final Deny Date Ultra Sound Latest Days Gestation 0 0 Menstrual History Last Menstrual Date Menses Monthly On Bcp Conception Prior Menses Frequency Hcg Plus Date Menarche Onset Age Delivery Information Delivery Date Delivery Type Labor Anesthesia Weeks Gestation Incision Type Labor Labor Length Hrs Delivered By Post Complications Tubal Sterilization Discharge Date Comments 9 Discharge Information Feeding Method Contraceptive Method Maternal HG B and HCT Levels
--- OUTSIDE RECORDS SUMMARY | 2024-06-09 08:07 | XMS_ITS | Clinical Summary ---
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 Gender Identity Not on file Sexual Orientation Not on file Plan of Treatment Health Maintenance Due Date Last Done Comments Depression Screening 1950 Fall Risk Assessment 1950 Hepatitis C Screening 1950 Osteoporosis Screening-Bone Density Scan 1950 Hepatitis B Screening 01/02/1966 Zoster Vaccine (1 of 2) 01/02/1998 Well Visit 65+ 01/02/2013 Covid-19 Vaccine (2023-2 5 season) 2023 03/06/2022, 12/31/2020, 05/22/2020, Additional history exists Influenza Vaccine (#1) 2023 , 12/14/2019, 01/19/2019, Additional history exists DTaP/Tdap/Td Vaccine (2 - Td or Tdap) 11/11/2030 11/11/2020 Pneumococcal vaccine 65+ Completed 018, 03/11/2017, 02/27/2016 Insurance MEDICARE fitaborate Care Teams Photographic Engineer Relationship Specialty Start Date End Date Loreto Turner MD [address] [place] [address] PCP - General Family Medicine 08/17/22
--- OUTSIDE RECORDS SUMMARY | 2024-06-09 08:07 | XMS_ITS | Referral Summary ---
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
--- OUTSIDE RECORDS SUMMARY | 2024-06-09 08:07 | XMS_ITS | Clinical Summary ---
Author Organization [facility] System Address [address] [place] [address] Care Team Providers Care Slat Pickler Name Role Phone Mariano Owens MD Primary Care Provider [phone] Lucille Leslie MD Unavailable Allergies Active Allergy Reactions Criticality Noted Date Comments Penicillins Unknown 05/01/2021 Sulfa Antibiotics Unknown 05/01/2021 Medications lorazepam 0.5 MG tablet Take 1 tablet (0.5 mg total) by mouth every 6 (six) hours as needed for Anxiety. Active verapamil ER 240 MG 24 hr capsuleIndicatio ns:Hypertension Take 1 capsule (240 mg total) by mouth daily. Indications: High Blood Pressure 4 03/03/20 18 Active montelukast 10 MG tabletIndication s:COPD, surveillance Take 1 tablet (10 mg total) by mouth daily. Indications: COPD, surveillance 03/20/20 19 Active atorvastatin 20 MG tablet [The details of the medication are not available because there are pending changes by a home health clinician.] 90 tablet 1 09/07/19 20 Active Additional Information Patient taking differently:20 mg Oral Nightly at bedtime, at bedtime,Indications: Hyperlipidemia, Reported on 04/13/2024 cetirizine 10 MG tabletIndication s:Congestion of Upper Airway (Inactive) Take 1 tablet (10 mg total) by mouth daily. Indications: CONGESTION OF UPPER AIRWAY (INACTIVE) 05/13/19 22 Active aspirin EC 81 MG tablet [The details of the medication are not available because there are pending changes by a home health clinician.] 90 tablet 05/10/19 22 Active Additional Information Patient taking differently:81 mg Oral 2 times daily,Indications: Anticoagulant Therapy, Reported on 04/13/2024 estradiol 0.1 MG/GM vaginal cream estradiol 0.01% (0.1 mg/gram) vaginal cream Active acetaminophen 500 MG tabletIndication s:Pain Take 2 tablets (1,000 mg total) by mouth every 6 (six) hours as needed for Pain. Indications: Pain 05/17/19 22 Active Active Problems Problem Noted Date Diagnosed Date Primary osteoarthritis of left knee 10/24/2021 Primary osteoarthritis of right knee 10/24/2021 Aftercare following surgery 05/13/2021 Encounter for rehabilitation 05/06/2021 Closed fracture of proximal end of left humerus 05/06/2021 Closed left hip fracture ([facility]) 05/01 Essential hypertension 04/09/2017 Bilateral carotid bruits 11/06/2016 Osteopenia 02/09/2012 Overview (05/05/2021): Note: Per DEXA report Hypercholesterolemia Postural dizziness with presyncope Resolved Problems Problem Noted Date Diagnosed Date Resolved Date Fatigue 04/09/2017 Encounters Date Type Department Care Team Description 04/10/2024 12:30 PM INK JET OPERATOR Office Visit [facility] [address] [place] [address] Lucille Leslie MD Heart Problem 04/10/2024 11:50 AM INK JET OPERATOR - 04/10/2024 11:59 PM INK JET OPERATOR Hospital Encounter [facility] [place] [address] Lucille Leslie MD Discharge Disposition: Home or Self Care (Routine Discharge) 04/10/2024 Travel 04/07/2024 Telephone [facility] [place] [address] Lucille Leslie MD Appointment Reminder 04/07/2024 Orders Only [facility] [address] [place] [address] Lucille Leslie MD from Last 3 Months Family History Medical History Relation Comments Endometrial cancer Mother Relation Status Comments Brother Alive Father (Age 92) pneumonia Mother Alive Social History Tobacco Use Types Packs/Day Years Used Date Smoking Tobacco: Never Smokeless Tobacco: Never Alcohol Use Standard Drinks/Week Comments No 0 (1 standard drink = 0.6 oz pur e alcohol) Comments No Sex and Gender Information Value Date Recorded Sex Assigned at Female 04/14/2024 1:28 PM INK JET OPERATOR Legal Sex Female 11:18 AM CDT Gender Identity Female 05/01/2021 5:41 PM INK JET OPERATOR Sexual Orientation Not on file 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 Not on file Not on file Not on file Last Filed Vital Signs Vital Sign Reading Time Taken Comments Blood Pressure 145/64 04/10/2024 9:04 AM INK JET OPERATOR Pulse 68 04/10/2024 9:03 AM INK JET OPERATOR Temperature 36.5 C (97.7 F) 06/11/2021 2:54 PM CDT Respiratory Rate 16 04/10/2024 9:03 AM INK JET OPERATOR Oxygen Saturation 97% 04/10/2024 9:03 AM INK JET OPERATOR Inhaled Oxygen Concentration - - Weight 61.2 kg (135 lb) 04/10/2024 9:03 AM INK JET OPERATOR Height 165.1 cm (5' 5 ) 04/10/2024 9:03 AM INK JET OPERATOR Body Mass Index 22.47 04/10/2024 9:03 AM INK JET OPERATOR Plan of Treatment Upcoming Encounters Date Type Department Care Team (Late st Contact Info) Description 10/02/2024 11:[address] [facility] [address] [place] [address] Lucille Leslie MD [address] [place] [address] 04/02/2025 11:00 AM INK JET OPERATOR [facility]ointment [facility] [address] [place] [address] Lucille Leslie MD [address] [place] [address] 04/23/2025 9:45 AM INK JET OPERATOR Office Visit [facility] [address] [place] [address] Lucille Leslie MD [address] [place] [address] Health Maintenance Due Date Last Done Comments Hepatitis C 01/02/1966 Zoster Vaccines (1 of 2) 01/02/1998 Annual Medicare Wellness Visit 01/02/2013 RSV Immunization or 60+ Years (1 - 1-dose 75+ series) 01/02/2023 COVID-19 Vaccine ( - season) 2023 12/31/2020, 05/22/2020, 05/01/2020 Influenza Adult (#1) 2023 02/03/2021, 12/14/2019, 01/19/2019, Additional history exists DTaP, Tdap and Td Vaccines (2 - Td or Tdap) 11/11/2030 11/11/2020 Pneumococcal Vaccine: 65+ Years Completed 12/23/2017, 03/11/2017, 02/27/2016 Dexa Scan (General) Completed 01/13/2022 Meningococcal B Vaccine Aged Out No l onger eligible based on patient's age to complete this topic Meningococcal Vaccine Aged Out No julia shahnaz eligible based on patient's age to complete this topic RSV Immunizations Under 20 Months Aged Out No longer eligible based on patient's age to complete this topic Goals Goal Patient Goal Type Associated Problems Recent Progress Patient-Stated? Author Safety Patient/family will have appropriate support at home upon discharge General Tonya Cain, ALESHA Patient will return to prior living situation and remain independent in ADLs upon discharge from hospital General Tonya Cain RN Medical Devices Implanted Type Area Internal Controls Analyst Device Identifier Shelf Expiration Date Model / Serial / Lot Kit Jose Nail Trochanteric 11mm X 180mm - [id number] Implanted:Qty: 1 on 05/02/2021 by Clint Oleary MD at [facility] Nail Left: Hip [employer] [id number] 11/26/2025 7384-0628 S / / [id number] Screw Bone 10.5mm 90mm Gamma3 Titanium Lag Sterile Trochanter Nail 180 - [id number] Implanted:Qty: 1 on 05/02/2021 by Clint Oleary MD at [facility] Screw Left: Hip [employer] [id number] 12/26/2025 9499-7458 S / / [id number] Screw Mccalla Locking 5mm X 35mm - [id number] Implanted:Qty: 1 on 05/02/2021 by Clint Oleary MD at [facility] Screw Left: Hip [employer] [id number] 08/26/2025 1175-5291 S / / [id number] Explanted Type Area Internal Controls Analyst Device Identifier Shelf Expiration Date Model / Serial / Lot Drill Bit Gamma3 System Mccalla 4.2 X 300mm - [id number] Explanted:Qty: 1 on 05/02/2021 by Clint Oleary MD at [facility] Drill Left: Hip [employer] [id number] 01/26/2026 2320-9169 S / / [id number] Wire K Jose Gamma 3 [id number] - [id number] Explanted:Qty: 1 on 05/02/2021 at [facility] Wire Left: Hip [employer] [id number] 01/26/2026 1849-7089 S / / [id number] Wire K Mccalla Gamma 3 3.4d702ca - [id number] Explanted:Qty: 1 on 05/02/2021 by Clint Oleary MD at [facility] Wire Left: Hip [employer] [id number] 12/26/2025 6932-2171 S / / [id number] Guidewire Ball Tipped Explanted:Qty: 1 on 05/02/2021 by Clint Oleary MD at [facility] Left: Hip 01/26/2026 [id number] S / / [id number] Procedures Procedure Name Priority Date/Time Associated Diagnosis Comments ECG 12-LEAD Routine 04/10/2024 11:59 AM INK JET OPERATOR Essential hypertension BONE DENSITY/DEXA Routine 01/13/2022 1:5 0 PM CDT Postmenopausal from Last 3 Months or Most Recently Relevant to Health Maintenance Results * ECG 12 lead (HOSPITAL PERFORMED ONLY) (04/10/2024 11:59 AM INK JET OPERATOR) 04/10/2024 11:5 9 AM INK JET OPERATOR Narrative [facility] RAD - 04/10/2024 6:25 PM INK JET OPERATOR [address] [place] [address] Test Date: 2024-04-10 Pat Name: CAROLEE ALFRED Department: 3 Room: Gender: Female Sterile Processing Technician: : [id number] Requested By: LUCILLE LESLIE Order Number: [id number] Reading MD: Lucille Leslie Measurements Intervals [place] Rate: 52 P: 79 WA: 153 QRS: 79 QRSD: 94 T: 74 QT: 448 QTc: 419 Interpretive Statements SINUS BRADYCARDIA JET OPERATOR Procedure Note Lucille Leslie MD - 04/10/[address] [place] [address] Test Date: 2024-04-10 Pat Name: CAROLEE ALFRED Department: 3 Room: Gender: Female Sterile Processing Technician: : 1950 Requested By: LUCILLE LESLIE Order Number: [id number] Reading : Lucille Leslie Measurements Intervals [place] Rate: 52 P: 79 WA: 153 QRS: 79 QRSD: 94 T: 74 QT: 448 QTc: 419 Interpretive Statements SINUS BRADYCARDIA JET OPERATOR us Lucille Leslie MD ECG ORDERABLES Final Result [facility] * BONE DENSITY/DEXA (01/13/2022 1:50 PM CDT) Anatomical Region Laterality Modality Bone Bone Density 01/13/2022 2:17 PM CDT Impressions 01/13/2022 2:20 PM CDT Impression: BMD measured at AP lumbar spine, right total hip and right femoral neck all at WHO category level of osteopenia. Ordered By: MARÍA BAEZA Interpreted By: Ace Villa MD, 01/13/2022 2:17 PM Narrative 01/13/2022 2:20 PM CDT Examination: DEXA Bone densitometry EXAM DATE: 01/13/2022 1:50 PM Clinical history: Prior fracture. Parent with history of hip fracture. Dairy product consumption. Screening for osteoporosis. Technique: DEXA bone minimal density evaluation was performed in the AP projection over the lumbar spine and over both hips in the AP projection utilizing standard imaging techniques. Assessment: The BMD measured at the AP spine L1-L4 is 0.913 g/cm2 with a T-score of -1.2 and a Z-Score of 1.1. The patient is considered osteopenic according to World Health Organization (WHO) criteria. Bone density is between 10 and 25% below young normal. Fracture risk is moderate. Treatment is advised. The BMD measured at the femur total right is 0.758 g/cm2 with a T-score of -1.5 and aZ-Score of 0.2. The patient is considered osteopenic according to World Health Organization (WHO) criteria. Bone density is between 10 and 25% below young normal. Fracture risk is moderate. Treatment is advised. The BMD measured at the right femoral neck is 0.597 g/sq cm resulting in a T score of -2.3 and a Z score of -0.2, values at the WHO category level of osteopenia. FRAX results: 10 year probability of major osteoporotic fracture 33% and of hip fracture 18%. Recommendations: All patients should ensure an adequate intake of dietary calcium and vitamin D. The NOF recommend adults under the age of 50 need 1000 mg of calcium and 400-800 IU of vitamin D daily. Effective therapy for the prevention and treatment of osteoporosis include biphosphonates. Follow-up: People with diagnosed cases of osteoporosis or at high risk for fracture should have regular bone mineral density test. For patients eligible for Medicare, routine testing is allowed once every 2 years. Testing frequency can be increased to one year for patients who have rapidly progressing disease, those who are receiving or discontinuing medical therapy to restore bone mass, or have additional risk factors. Based on these results, a followup exam is recommended in no earlier than 2 years for routine follow-up. As early as 1 year to assess efficacy of new medication therapy for treatment of osteoporosis. Procedure Note Ace Villa MD - 01/13/2022 Examination: DEXA Bone densitometry EXAM DATE: 01/13/2022 1:50 PM Clinical history: Prior fracture. Parent with history of hip fracture.Dairy product consumption. Screening for osteoporosis. Technique: DEXA bone minimal density evaluation was performed in the APprojection over the lumbar spine and over both hips in the AP projectionutilizing standard imaging techniques. Assessment: The BMD measured at the AP spine L1-L4 is 0.913 g/cm2 with a T-score of-1.2 and a Z-Score of 1.1. The patient is considered osteopenicaccording to World Health Organization (WHO) criteria. Bone density isbetween 10 and 25% below young normal. Fracture risk is moderate.Treatment is advised. The BMD measured at the femur total right is 0.758 g/cm2 with a T-score of-1.5 and aZ-Score of 0.2. The patient is considered osteopenicaccording to World Health Organization (WHO) criteria. Bone density isbetween 10 and 25% below young normal. Fracture risk is moderate.Treatment is advised. The BMD measured at the right femoral neck is 0.597 g/sq cm resulting in aT score of -2.3 and a Z score of -0.2, values at the WHO category level ofosteopenia. FRAX results: 10 year probability of major osteoporotic fracture 33% andof hip fracture 18%. Recommendations: All patients should ensure an adequate intake of dietary calcium andvitamin D. The NOF recommend adults under the age of 50 need 1000 mg ofcalcium and 400-800 IU of vitamin D daily. Effective therapy for theprevention and treatment of osteoporosis include biphosphonates. Follow-up: People with diagnosed cases of osteoporosis or at high risk for fractureshould have regular bone mineral density test. For patients eligible forMedicare, routine testing is allowed once every 2 years. Testing frequencycan be increased to one year for patients who have rapidly progressingdisease, those who are receiving or discontinuing medical therapy torestore bone mass, or have additional risk factors. Based on these results, a followup exam is recommended in no earlier than2 years for routine follow-up. As early as 1 year to assess efficacy ofnew medication therapy for treatment of osteoporosis. Impression: BMD measured at AP lumbar spine, right total hip and right femoral neckall at WHO category level of osteopenia. Ordered By: MARÍA BAEZA Interpreted By: Ace Villa MD, 01/13/2022 2:17 PM us María Baeza MD DEXA Final Resu lt from Last 3 Months or Most Recently Relevant to Health Maintenance Insurance MEDICARE Advance Directives * Full Code (Latest Code Status on File) Date Activated Date Inactivated Comments 05/13/2021 9:37 AM * Full Code Date Activated Date Inactivated Comments 05/05/2021 3:03 PM 05/10/2021 2:55 PM * Full Code Date Activated Date Inactivated Comments 05/01/2021 5:33 PM 05/05/2021 3:01 PM Care Teams Slat Pickler Relationship Specialty Start Date End Date Mariano Owens MD [address] [place] [address] PCP - General INTERNAL MEDICINE 10/20/16 Lucille Leslie MD [address] [place] [address] Consulting Physician CARDIOVASCULAR DISEASE 08/06/20
--- OUTSIDE RECORDS SUMMARY | 2024-06-09 08:07 | XMS_ITS | Encounter Summary ---
Author Organization [facility] Address [facility] [place] [address] Care Team Providers Care General Partner Name Role Phone Mariano Owens MD Primary Care Provider [phone] Simon Del Toro MD Unavailable Unavailable Skyla Moncada MD Unavailable Encounter Details Date Type Department Care Team (Late st Contact Info) Description 09/03/2018 Abstract [facility] [address] [place] [address] , Manda Richter MD Social History Tobacco Use Types Packs/Day Years Used Date Smoking Tobacco: Never Alcohol Use Standard Drinks/Week Comments No 0 (1 standard drink = 0.6 oz pur e alcohol) Comments Unknown Sex and Gender Information Value Date Recorded Sex Assigned at Female 04/14/2024 1:28 PM LABORATORY TECH Legal Sex Female 11:18 AM CDT Gender Identity Female 05/01/2021 5:41 PM LABORATORY TECH Sexual Orientation Not on file 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 [address] [place] [address] Skyla Moncada MD [address] [place] [address] 04/02/2025 11:00 AM LABORATORY TECH Appointment [facility] [address] [place] [address] Skyla Moncada MD [address] [place] [address] 04/23/2025 9:45 AM LABORATORY TECH Office Visit [facility] [address] [place] [address] Skyla Moncada MD [address] [place] [address] documented as of this encounter Visit Diagnoses Not on filedocumented in this encounter Additional Health Concerns Infection Onset Date Last Indicated Resolved Time COVID-19 Rule Out 05/01/2021 05/01/2021 05/01/2021 10:11 PM LABORATORY TECH documented as of this encounter Care Teams General Partner Relationship Specialty Start Date End Date Mariano Owens MD [address] [place] [address] PCP - General INTERNAL MEDICINE 10/20/16 Simon Del Toro MD [address] [place] [address] [place] [employer] Equipment Repairer INTERVENTIONAL CARDIOLOGY 10/20/16 08/05/20 Skyla Moncada MD [address] [place] [address] Consulting Physician CARDIOVASCULAR DISEASE 08/06/20 documented as of this encounter
[2024-06-09 09:06] LABS: Hemoglobin 12.5 g/dL (11.7-13.8); Mean Corpuscular HGB Conc 32.1 g/dL (32-36); Mean Corpuscular Hemoglobin 29.9 pg (27.0-31.0); Mean Corpuscular Volume 93.3 fL (78.0-102.0); Mean Platelet Volume 10.4 fl (9.2-11.8); Platelet Count Result 226 K/mm3 (150-420); Red Blood Count 4.18 M/mm3 (4.20-5.40); Red Cell Distribution Width 12.9 % (11.6-14.4); White Blood Count 5.1 K/mm3 (4.8-10.8)
[2024-06-09 09:09] LABS: Add Urine Microscopic? NO; Appearance Urine Clear (Clear); Bilirubin Urine Negative (Negative); Blood Urine Negative (Negative); Color Urine Light Yellow (Yellow); Glucose Urine UA Negative (Negative); Ketones Urine Negative (Negative); Leukocyte Esterase Ur Negative (Negative); Nitrate Urine Negative (Negative); Protein Urine Negative (Negative); Specific Grav Ur >= 1.030 (1.010-1.020); Urobilinogen Urine 0.2 mg/dL (0.2-1.0)
[2024-06-09 09:45] LABS: Alanine Aminotransferase 18 U/L (14-59); Albumin Level 3.9 g/dL (3.4-5.0); Alkaline Phosphatase 117 U/L (46-116); Anion Gap 10 mmol/L (4-12); Aspartate Amino Transferase 14 U/L (15-37); Bilirubin,Total 0.5 mg/dL (0.00-1.00); Blood Urea Nitrogen 14 mg/dL (7-18); Calcium 9.6 mg/dL (8.5-10.1); Carbon Dioxide 28 mmol/L (21-32); Chloride 107 mmol/L (98-108); Cholesterol 149 mg/dL (0-200); Estimated Glomerular Filt Rate > 60; Glucose 99 mg/dL (70-99); HDL Direct 74 mg/dL (40-60); LDL Cholesterol Calculated 67 mg/dL (<130); Osmolality Calculated 300 mOsm/kg (285-295); Sodium 145 mmol/L (136-145); Thyroid Stimulating Hormone 2.34 uIU/mL (0.36-3.74); Total Protein 6.6 g/dL (6.4-8.2); Triglycerides 41 mg/dL (0-150)
== END 2024-06-09 07:57 | disposition home or self-care (01) ==
LOC: CHSIMG 07:57
PROVIDERS: PCP Internal Medicine; Visit Provider Internal Medicine
DX: Z12.31 Encounter for screening mammogram for malignant neoplasm of breast (principal); I10 Essential (primary) hypertension; E78.5 Hyperlipidemia, unspecified; M85.88 Other specified disorders of bone density and structure, other site; M81.0 Age-related osteoporosis without current pathological fracture
CPT/HCPCS: 36415; 77063; 77067; 77080; 80053; 80061; 81003; 84443; 85027

== ENCOUNTER 2025-01-26 09:18 | Outpatient (CLI) | payer MEDICARE, SELFPAY ==
--- OUTSIDE RECORDS SUMMARY | 2024-09-28 12:30 | XMS_ITS ---
Author Organization [facility] [place] ([address]) Address [address] [place] [address] Care Team Providers Care Hand Funnel Coater Name Role Phone Monica Finch Unavailable [phone] Eric Cifuentes [phone] REASON FOR VISIT Chronic upper airway symptoms concerning for uncontrolled atopic disease, Chronic lower airways symptoms concerning for possible asthma Social History Sex Assigned At : Social History Observation Description Sex Assigned At Female Problems Problem Type SNOMED Code ICD Code Onset Dates Problem Status W/U Status Risk Notes Problem Allergic rhinitis caused by pollen (disorder) (88669924) Allergic rhinitis due to pollen (J30.1) Active confirmed Problem Allergic rhinitis caused by animal hair and dander (441228018693817) Allergic rhinitis due to animal (cat) (dog) hair and dander (J30.81) Active confirmed Problem Allergic rhinitis (01777375) Other allergic rhinitis (J30.89) Active confirmed Problem Chronic allergic conjunctivitis (57346832) Other chronic allergic conjunctivitis (H10.45) Active confirmed Problem Chronic rhinitis (25502654) Chronic rhinitis (J31.0) Active confirmed Problem Uncomplicated moderate persistent asthma (435753334) Moderate persistent asthma, uncomplicated (J45.40) Active confirmed Problem Uncomplicated mild persistent asthma (685680997) Mild persistent asthma, uncomplicated (J45.30) Active confirmed Problem Uncomplicated severe persistent asthma (480796488) Severe persistent asthma, uncomplicated (J45.50) Active confirmed Encounters Encounter Location Date Provider Diagnosis [facility] [address] [place] [address] 09/28/2024 Eric Win Allergic rhinitis du e to pollen J30.1 ; Allergic rhinitis due to animal (cat) (dog) hair and dander J30.81 ; Other allergic rhinitis J30.89 ; Other chronic allergic conjunctivitis H10.45 ; Hypertrophy of nasal turbinates J34.3 ; Chronic rhinitis J31.0 ; Moderate persistent asthma, uncomplicated J45.40 ; Mild persistent asthma, uncomplicated J45.30 and Severe persistent asthma, uncomplicated J45.50 Assessments Encounter Date Diagnosis (ICD Code) Assessment Notes Treatment Notes Treatment Clinical Notes Section Notes 09/28/2024 Allergic rhinitis due to pollen (ICD-10 - J30.1) Given the history and symptoms, skin testing was performed to common aeroallergens to determine atopic status. clearly suffers from atopic disease based upon our skin testing and clinical history. Accordingly, we have introduced a new, aggressive medication regimen, discussed nasal washes and allergy-specific avoidance measures. We also discussed adjunctive therapies including subcutaneous, specific allergen immunotherapy as relates to the treatment and prevention of atopic disease. They are currently considering the risks, benefits and alternatives to this care. Risks: bleeding, infection, allergic reaction, anaphylaxis; Benefits: reduced need for medications, improved symptoms, disease modification. Alternatives: watch/wait, change medication regimen, improve allergy avoidance measures. Follow-up in 1 month for interval evaluation and management 09/28/2024 Allergic rhinitis due to animal (cat) (dog) hair and dander (ICD-10 - J30.81) Follow allergen avoidance, meds and consider SCIT as an adjunctive treatment to current regimen 09/28/2024 Other allergic rhinitis (ICD-10 - J30.89) Follow allergen avoidance, meds and consider SCIT as an adjunctive treatment to current regimen 09/28/2024 Other chronic allergic conjunctivitis (ICD-10 - H10.45) Given ocular signs and symptoms I encouraged allergy avoidance measures and meds as above. If symptoms persist, consider adding additional medications including intraocular antihistamine/mas t cell stabilizer, PRN and consider SCIT as an adjunctive measure 09/28/2024 Hypertrophy of nasal turbinates (ICD-10 - J34.3) 09/28/2024 Chronic rhinitis (ICD-10 - J31.0) 09/28/2024 Moderate persistent asthma, uncomplicated (ICD-10 - J45.40) 09/28/2024 Mild persistent asthma, uncomplicated (ICD-10 - J45.30) 09/28/2024 Severe persistent asthma, uncomplicated (ICD-10 - J45.50) Plan Of Treatment Treatment Notes Assessment Notes Allergic rhinitis due to pollen Given th e history and symptoms, skin testing was performed to common aeroallergens to determine atopic status. clearly suffers from atopic disease based upon our skin testing and clinical history. Accordingly, we have introduced a new, aggressive medication regimen, discussed nasal washes and allergy-specific avoidance measures. We also discussed adjunctive therapies including subcutaneous, specific allergen immunotherapy as relates to the treatment and prevention of atopic disease. They are currently considering the risks, benefits and alternatives to this care. Risks: bleeding, infection, allergic reaction, anaphylaxis; Benefits: reduced need for medications, improved symptoms, disease modification. Alternatives: watch/wait, change medication regimen, improve allergy avoidance measures. Follow-up in 1 month for interval evaluation and management Allergic rhinitis due to ani mal (cat) (dog) hair and dander Follow allergen avoidance, meds and consider SCIT as an adjunctive treatment to current regimen Other allergic rhinitis Follow allergen avoidance, meds and consider SCIT as an adjunctive treatment to current regimen Other chronic allergic conjunctivitis Gi vel ocular signs and symptoms I encouraged allergy avoidance measures and meds as above. If symptoms persist, consider adding additional medications including intraocular antihistamine/mast cell stabilizer, PRN and consider SCIT as an adjunctive measure Next Appt Details Follow Up: 4 Weeks, Reason: Evaluation and Management Progress Notes * Carolee ALFREDDOB:1950 (75 yo F)Acc No.[id number]:09/28/2024 Progress Notes Patient: Carolee BARRERA Provider: Marti Cifuentes MD :1950 A ge:74 Y S ex:Female Date:09/28/2024 Address:[address] [place] [address] [address], [address], [id number] Subjective: * Chief Complaints: * 1 . Chronic upper airway symptoms concerning for uncontrolled atopic disease. 2. Chronic lower airways symptoms concerning for possible asthma. * HPI: * Introduction: HPI: x . * ROS: A LLERGY: Positive p er the HPI and history, otherwise unremarkable.? S PECIAL SENSES: Positve for n one. C ONSTITUTIONAL: Positive for n one. E NT: Positive p er the HPI and history, otherwise unremarkable.? R ESPIRATORY: Positive p er the HPI and history, otherwise unremakable.? O PHTHALMOLOGY: Positive for p er the HPI and history, otherwise unremarkable. E NDOCRINOLOGY: Positive for n one. C ARDIOLOGY: Positive for n one. G ASTROENTEROLOGY: Positive for n one. U ROLOGY: Positive for n one. D ERMATOLOGY: Positive for p er the HPI and history, otherwise unremakable. N EUROLOGY: Positive for n one. H EMATOLOGY/LYMPH: Positive for n one. M USCULOSKELETAL: Positive for n one. P SYCHOLOGY: Positive for n one. A ll other review of systems per the HPI and history, otherwise unremarkable. * Medical History: Objective: * Vitals: Assessment: * Assessment: 1. A llergic rhinitis due to pollen - J30.1 (Primary) 2 . A llergic rhinitis due to animal (cat) (dog) hair and dander - J30.81 3 . O ther allergic rhinitis - J30.89 4 . O ther chronic allergic conjunctivitis - H10.45 5 . H ypertrophy of nasal turbinates - J34.3 6 . C hronic rhinitis - J31.0? 7. M oderate persistent asthma, uncomplicated - J45.40 8 . M ild persistent asthma, uncomplicated - J45.30 9 . S evere persistent asthma, uncomplicated - J45.50 Plan: * Treatment: 2. A llergic rhinitis due to animal (cat) (dog) hair and dander Notes: Follow allergen avoidance, meds and consider SCIT as an adjunctive treatment to current regimen 3. O ther allergic rhinitis Notes: Follow allergen avoidance, meds and consider SCIT as an adjunctive treatment to current regimen 4. O ther chronic allergic conjunctivitis Notes: Given ocular signs and symptoms I encouraged allergy avoidance measures and meds as above. If symptoms persist, consider adding additional medications including intraocular antihistamine/mast cell stabilizer, PRN and consider SCIT as an adjunctive measure * Preventive Medicine: Counseling: M edication instruction: W atch for side effects of prescribed medications, Nasal steroid/antihistamine instruction: avoid septum. E ducation: G ENERAL EDUCATION: Our staff spent an additional 30 minutes in direct contact with the patient educating them on their current diagnoses and proper treatment and prevention of symptoms and the proper use of medications. E ducation 2: A RC EDUCATION: Our staff discussed the appropriate allergen avoidance measures and medication utilization including upper airway hygiene with daily nasal washes given the patient's clinical status and diagnoses. SCIT EDUCATION: Discussed allergy immunotherapy including the relative risks, benefits and alternatives to this treatment as an adjunctive measure to current therapy, Allergy Immunotherapy: Risks: bleeding, infection, allergic reaction, anaphylaxis = severe allergic reaction that can cause ; Benefits: reduced need for medications, improved symptoms, disease modification. Alternatives: watch/wait, change medication regimen, improve allergy avoidance measures, Our staff discussed the warning signs of anaphylaxis and the indications to use self-injectable epinephrine and seek urgent or emergent care. P atient education material sent to portal? Y es * Follow Up: 4 Weeks (Reason: Evaluation and Management) * Billing Information: * Visit Code: * Procedure Codes: 31151 PRICK TESTS. Units: 72.00. 90800 INTRADERMAL TESTS. 83502 MEASURE BLOOD OXYGEN LEVEL. 17725 SELF-MGMT EDUC & TRAIN, 1 PT. S9441 ASTHMA ED NON-MD PROV PER SESSION. 38729 PT-FOCUSED HLTH RISK ASSMT. G8427 DOC MEDS VERIFIED W/PT OR RE. * Electronic signature of Patneisha Cifuentes MD, FAAAAI on 01/26/2025 at 09:44 AM CDT Sign off status: Pending * Provider: Marti Cifuentes MD Date: 0 09/28/2024 Generated for Printi ng/Joel/eTransmitting on: 09:44 AM CDT History and Physical Notes * HPI (History of Present Illness) Category Sub-Category Detail Notes Category Not es *Introduction HPI: x Examination Category Sub-Category Detail Notes Category Not es General examination HEENT: pupils equal , round, and reactive to light and accommodation, conjunctiva are injected bilaterally, no tenderness to palpation of the sinuses, TM's without evidence of acute infection, turbinates 2+ swollen and pale inferiorly bilaterally, clear rhinorrhea is present, no polyps noted, no septal perforation, posterior oropharynx is erythematous and cobblestoning is present, erythema on pharyngeal wall, no exudates, no tongue swelling, and uvula is midline Neck, thyroid : supple, non-tender, no anterior cervical lymphadenopathy Heart: RRR, S1-S2, no murmu rs, no rubs, no gallops Lungs: clear to auscultatio n and percussion in all lung albrecht, no wheezes or crackles Abdomen: soft, NT/ND, normal active bowel sounds Extremities: normal ROM, no clubb ing, no cyanosis, no edema General appearance: pleasant, well-devel oped, well-nourished Skin: normal, no rash, tello matographism, urticaria, angioedema Neurologic exam: unremarkable Oral cavity: normal, no lesions Breasts : not performed Peripheral pulses: normal (2+) bilatera lly Back: normal Genitalia: not performed
--- OUTSIDE RECORDS SUMMARY | 2024-11-16 12:30 | XMS_ITS ---
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 Name Role Phone Monica Finch Unavailable [phone] REASON FOR VISIT GREENHOUSE STAFF Allergies & Asthma Social History Sex Assigned At : Social History Observation Description Sex Assigned At Female Encounters Encounter Location Date Provider Diagnosis [facility] [address] [place] [address] 11/16/2024 Monica Finch Plan Of Treatment No Information Progress Notes * Carolee ALFREDDOB:1950 (75 yo F)Acc No.[id number]:11/16/2024 Progress Notes Patient: Carolee BARRERA Provider: BURKE Arzate :1950 A ge:74 Y S ex:Female Date:11/16/2024 Address:[facility] [address], [facility] Subjective: * Chief Complaints: * 1 . GREENHOUSE STAFF Allergies & Asthma. * Medical History: Objective: * Vitals: Assessment: Plan: * Treatment: * Billing Information: * Visit Code: * Procedure Codes: * Electronic signature of BURKE Morris on 01/26/2025 at 09:45 AM CDT Sign off status: Pending * Provider: BURKE Arzate Date: 0 11/16/2024 Generated for Printi ng/Faxing/eTransmitting on: 1 09:45 AM CDT
--- OUTSIDE RECORDS SUMMARY | 2025-01-26 09:45 | XMS_ITS | Patient Health Record ---
Author Organization [facility] [place] ([address]) Address [address] [place] [address] Care Team Providers Care Director Of Partnerships Name Role Phone Shalajose elias Monica Unavailable [phone] Eric Cifuentes Unavailable [phone] Reason For Referral No Information Social History Sex Assigned At : Social History Observation Description Sex Assigned At Female Problems Problem Type SNOMED Code ICD Code Onset Dates Problem Status W/U Status Risk Notes Problem Chronic allergic conjunctivitis (55331094) Other chronic allergic conjunctivitis (H10.45) Active confirmed Problem Allergic rhinitis caused by pollen (disorder) (01881012) Allergic rhinitis due to pollen (J30.1) Active confirmed Problem Allergic rhinitis (67347775) Other allergic rhinitis (J30.89) Active confirmed Problem Chronic rhinitis (61195290) Chronic rhinitis (J31.0) Active confirmed Problem Uncomplicated mild persistent asthma (380911066) Mild persistent asthma, uncomplicated (J45.30) Active confirmed Problem Uncomplicated moderate persistent asthma (964918339) Moderate persistent asthma, uncomplicated (J45.40) Active confirmed Problem Uncomplicated severe persistent asthma (822389851) Severe persistent asthma, uncomplicated (J45.50) Active confirmed Problem Allergic rhinitis caused by animal hair and dander (317922975692279) Allergic rhinitis due to animal (cat) (dog) hair and dander (J30.81) Active confirmed Plan Of Treatment No Information Insurance Providers Payer Name Payer Address Payer Phone Subscriber Number Group Number Insured Name Patient Relationship to Insured Coverage Start Date Coverage End Date [employer] (Medicare) Attention Claims [address] [place] [address] [phone] [id number] Carolee Lopez Self - patient is the insured [facility] [address] [address] [place] [address] [id number] Carolee Lopez Self - patient is the insured
--- OUTSIDE RECORDS SUMMARY | 2025-01-26 09:45 | XMS_ITS | Data Portability ---
Author Organization [facility] Address [address] [place] [address] [address] Care Team Providers Care Balancing Machine Operator Name Role Phone OSCAR SARKAR Primary Care [...] estrace refilled FU 1 year or prn [email or web address] Not available 04/02/2021 09:15:32 Plan of Treatment Reminders Order Date Submit Date Provider Last Modified By Organization Details Last Modified Time Details Appointments None recorded. Lab None recorded. Referral None recorded. Procedures None recorded. Surgeries None recorded. Imaging None recorded. Medication Orders Estrace 0.01% (0.1 mg/gram) vaginal cream 022 022 [facility], [address] [place] [address], [address], 14:53:45 Patient TargetsNo targets recorded. Patient InstructionsNo instructions recorded. Reason for Referral None Reported. Results Created Date Observation Date Name Description Value Unit Range Abnormal Flag Note LastModifiedBy Organization Detail LastModifiedTime 01/14/20 22 01/13/2022 DEXA No observ ation record ed. [facility] (Radiology) [address], [place], [address], 01/13/2022 18:49:44 01/15/20 22 01/13/2022 MAMMO , scree jose, bilat eral No observ ation record ed. [email or web address] [facility] [address], [place], [address], 01/14/2022 17:18:45 Result Notes None recorded. Problems Name Problem SNOMED Code Status Onset Date Resolution Date Notes Provider Name and Address Organization Details Recorded Time Sexual function painful Completed 201803/31/2021 Dyspareu arnel;Salvador rded Elsewher e: No Locat ion: [facility] S ource: EHR Irrigation System Installer minesh: N Practi ce ID: 0001 Jose A lable Time: 11:00:00 AM María Romero MD [address], [place], [address], [facility] 2 14:42:32 Atrophic vaginiti s 44168147 Active 2018 María Romero MD [address], [place], [address], [facility] 2 14:42:28 Problem Notes None recorded. Procedures Surgical History Date Name Laterality Status Provider Name and Address Organization Details Recorded Time Jaw arthroscopy /surgery completed Isha Cruz [facility] 03/31/2021 09:33:16 Imaging Results None recorded. Procedure Notes None recorded. Medical Equipment None Reported. Allergies Allergen ID Allergen Name Allergen Category Reaction Reaction Severity Criticality Documentation Date Start Date Code Code System Note Provider Name and Address Organization Details Recorded Time 94427 Product containin g penicilli n (product) medicatio n Not available Not available Not available 03/15/2020 78479 8001 SNOMED React ion: Itchi ng;jarrod ellgarland g; Comme nt: [facility]at [facility]; Not Available [facility] 0 14:14:47 01696 Substance with sulfonami de structure and antibacte rial mechanism of action (substanc e) medicatio n Not available Not available Not available 03/15/2020 80896 8003 SNOMED React ion: Itchi ng;sw angie g; Comme nt: [facility]at [facility]; Not Available [facility] 0 14:14:47 Medications Name Sig Start Date Stop Date Status Note LastModified by Organization Details LastModified Time atorvasta tin 80 mg tablet take 1 tablet by oral route every day 03/31 completed Prescrib ed Elsewher e: Yes Loca tion: [facility] odify By: [email or web address] Encount er DateTime : 04/01/19 11:00:00 AM [...] Prescrib ed Elsewher e: Yes Loca tion: [facility] odify By: Encount er DateTime : 04/01/19 [...] Prescrib ed Elsewher e: Yes Loca tion: [facility] odify By: [email or web address] Encount er DateTime : 04/01/19 19 11:00:00 [...] Prescrib ed Elsewher e: Yes Loca tion: [facility] M odify By: [email or web address] Encount er DateTime : 04/01/19 11:00:00 AM [...] Body mass index (BMI) Body weight Systolic And Diastolic Provider Name and Address Organization Details Last Updated DateTime 03/31/2021 167.64 cm 20.8 kg/m2 32883.42 g 145/84 mm[Hg] Isha Cruz [facility] 03/31/2021 14:32:30 Date Recorded Systolic And Diastolic Provider Name and Address Organization Details Last Updated DateTime 04/07/2022 122/74 mm[Hg] Letty Stout, [facility]- [address], [place], [address], [facility] 04/07/2022 12:50:54 Date Recorded Body weight Provider Name an d Address Organization Details Last Updated DateTime 04/07/2022 27832.53 g Brittny Valerio [facility] 04/07/2022 12:40:25 Social History Question Answer Notes LastModified by Organizat ion Details LastModified Time Tobacco Smoking Status Never Smoker Brittny Valerio null, [facility] 04/07/2022 12:41:19 Are You Blind Or Do You Have [...] Or The Highest Degree You Have Received? [id number] Information not available 04/07/2022 Are There Any [...] IV Drugs? No Information not available 04/07/2022 Do You Have Difficulty Walking Or Climbing Stairs? No Information not available 04/07/2022 Sex: Unknown Functional Status Question Answer Note LastModified by Organizat ion Details LastModified Time Do you use any illicit or recreational drugs? No Information not available 04/07/2022 What is your level of alcohol consumption? None Information not available 04/07/2022 Are you able to walk independently without assistance or assistive devices? YESWOREST Information not available 04/07/2022 Are you able to care for yourself independently? Yes Information not available 04/07/2022 What is your occupation? Retired Information not available 04/07/2022 Do you have difficulty dressing, bathing, grooming, or toileting? No Information not available 04/07/2022 What is your exercise level? Occasional Information not available 04/07/2022 Mental Status Question Answer Note LastModified by Organization D etails LastModified Time Do you feel stressed (tense, restless, nervous, or anxious, or unable to sleep at night)? [id number] Information not available 04/07/2022 Family History Relationship Description Onset Age of [...] Diagnosis SNOMED-CT Code Diagnosis ICD10 Code Diagnosis IMO Codes Diagnosis Note 44062 María Romero MD [facility] [address] [address] 03/31/2021 14:17:25 04/01/2021 15:35:30 Atrophic vaginitis 90892284 N95.2 Gynecologi c examination 35572290 Z01.419 [id number] Letty Stout , [facility] [address] [address] 04/07/2022 12:25:23 04/07/2022 13:05:48 Sebaceous cyst of skin 802960356 L72.3 Today we talked about what a [...] Recorded Advance Directives Directive None Recorded Payers Insurance Date Sequence Insurance Name Policy Number Policy Maddox Covered Member ID Maddox Member ID Guarantor Name 04/06/2022 2 [employer] (MEDICARE SUPPLEMENT) Carolee Lopez [id number] Carolee Lopez 04/06/2022 1 [place] Carolee Lopez [id number] Carolee Lopez Notes Date Note Type [...] concerns- María Romero MD [address], [place], [address], [facility] 04/02/2021 09:15:48 04/07/2022 text/html ROS as noted in the HPI Here today for vulvar bump noticed while looking to see if any skin irritation from using a new pantyliner; noticed a small white bump on inner portion of left labia majora. Neg pain of abd/pelvis/flank Neg urinary sx'sNeg GI sx'sNeg N/V/F/C/DNeg Vag d/c, odor, irritation, itchingNot regularly SA-partner of 20+yrs has health issues currently. Letty Stout, [facility]- [address], [place], [address], [facility] 04/07/2022 13:01:20 OBGyn Episode Ob Episode Information Episode Created Date Number of Fetuses Patient Bloodtype Patient rh Status Prepregnancy Weight lbs Domestic Partner Domestic Partner Phone Father Name Loan Auditor Status 03/31/19 22 1 CLOSED Fetus Data First Name Last Name Admitted to NICU Weight (g) Sex Living Outcome Pediatric Complications Fetus ID Race Codes Race Delivery Type 4025.62 9 M [id number] Vaginal Delivery Deny Calculation Initial Deny Date [...] Domestic Partner Domestic Partner Phone Father Name Loan Auditor Status 03/31/19 22 1 CLOSED Fetus Data First Name Last Name Admitted to NICU Weight (g) Sex Living Outcome Pediatric Complications Fetus ID Race Codes Race Delivery Type 3316.66 4704 M [id number] Vaginal Delivery Deny Calculation Initial Deny Date [...] Domestic Partner Domestic Partner Phone Father Name Loan Auditor Status 03/31/19 22 1 CLOSED Fetus Data First Name Last Name Admitted to NICU Weight (g) Sex Living Outcome Pediatric Complications Fetus ID Race Codes Race Delivery Type 2919.77 1704 F [id number] Vaginal Delivery Deny Calculation Initial Deny Date [...]
--- OUTSIDE RECORDS SUMMARY | 2025-01-26 09:45 | XMS_ITS | Clinical Summary ---
Author Organization [facility] Address [address] [place] [address] Care Team Providers Care Furniture Mover Driver Name Role Phone Loreto Turner MD Primary Care Provide r Social History Tobacco Use Types Packs/Day Years Used Date Smoking Tobacco: Never Assessed Personal Safety Answer Date Recorded Getting School Help Needed Not on file 06/11 Comments Unknown Sex and Gender Information Value Date Recorded Sex Assigned at Not on file Legal Sex Female 2:50 PM REGISTERED NURSES Gender Identity Not on file Sexual Orientation Not on file Plan of Treatment Health Maintenance Due Date Last Done Comments Depression Screening 1950 Fall Risk Assessment 1950 Hepatitis C Screening 1950 Osteoporosis Screening-Bone Density Scan 1950 Hepatitis B Screening 01/02/1966 Zoster Vaccine (1 of 2) 01/02/1998 Well Visit 65+ 01/02/2013 Covid-19 Vaccine (2024- 6 season) 2024 03/06/2022, 12/31/2020, 05/22/2020, Additional history exists Influenza Vaccine (#1) 2024 , 12/14/2019, 01/19/2019, Additional history exists DTaP/Tdap/Td Vaccine (2 - Td or Tdap) 11/11/2030 11/11/2020 Pneumococcal vaccine 65+ Completed 018, 03/11/2017, 02/27/2016 Insurance MEDICARE [employer] [facility] [employer] Furniture Mover Driver Relationship Specialty Start Date End Date Loreto Turner MD [address] [place] [address] PCP - General Family Medicine 08/17/22
[2025-01-26 09:46] LABS: Hematocrit 40.4 % (35.0-42.0); Hemoglobin 12.8 g/dL (11.7-13.8); Mean Corpuscular HGB Conc 31.7 g/dL (32-36); Mean Corpuscular Hemoglobin 30.0 pg (27.0-31.0); Mean Corpuscular Volume 94.6 fL (78.0-102.0); Platelet Count Result 224 K/mm3 (150-420); Red Blood Count 4.27 M/mm3 (4.20-5.40); White Blood Count 4.8 K/mm3 (4.8-10.8)
[2025-01-26 10:07] LABS: Alanine Aminotransferase 16 U/L (6-35); Albumin Level 4.5 g/dL (3.5-5.1); Alkaline Phosphatase 76 U/L (38-126); Anion Gap 9 mmol/L (4-12); Aspartate Amino Transferase 25 U/L (14-36); Bilirubin,Total 0.8 mg/dL (0.2-1.3); Blood Urea Nitrogen 12 mg/dL (7-17); Calcium 9.7 mg/dL (8.4-10.2); Carbon Dioxide 31 mmol/L (22-30); Chloride 104 mmol/L (98-107); Cholesterol 158 mg/dL (0-200); Estimated Glomerular Filt Rate > 60; Glucose 94 mg/dL (65-110); HDL Direct 80 mg/dL; Osmolality Calculated 297 mOsm/kg (285-295); Potassium 4.5 mmol/L (3.4-5.0); Sodium 144 mmol/L (137-145); Total Protein 6.6 g/dL (6.3-8.2); Triglycerides 70 mg/dL (<150)
== END 2025-01-26 09:19 | disposition home or self-care (01) ==
LOC: CHSLAB 09:20
PROVIDERS: PCP Internal Medicine; Visit Provider Internal Medicine
DX: I10 Essential (primary) hypertension (principal); E78.5 Hyperlipidemia, unspecified
CPT/HCPCS: 36415; 80053; 80061; 85027